=== PATIENT | female | born 1945 | race Caucasian/White ===

== ENCOUNTER 2023-10-03 03:54 | Inpatient (IN) ==
[2023-10-03] MEDS: ONDANSETRON INJ 2 MG/ML 2 ML VIAL IV STA (04:26)
[2023-10-03] MEDS: HYDROmorphone INJ 0.5 MG/0.5 ML SYR IV STA (04:26)
[2023-10-03] MEDS: SODIUM CHLORIDE 0.9% 1,000 ML IV STA (04:26)
[2023-10-03 04:46] LABS: Basophils # (auto) 0.04 K/uL (0.00-0.20); Basophils % (auto) 0.3 %; Eosinophils # (auto) 0.03 K/uL (0.00-0.50); Eosinophils % (auto) 0.2 %; Hematocrit (blood only) 40.4 % (37.0-47.0); Hemoglobin 13.7 g/dl (12.0-16.0); Immature Granulocytes # (auto) 0.05 K/uL (0.01-0.20); Immature Granulocytes % (auto) 0.4 %; Lymphocytes % (auto) 13.6 %; Mean Corpuscular Hemoglobin 30.6 pg (25.0-34.0); Mean Corpuscular Hgb Conc 33.9 g/dL (32.0-36.0); Mean Corpuscular Volume 90.2 fL (80.0-100.0); Mean Platelet Volume 10.2 fL (9.4-12.4); Monocytes # (auto) 0.76 K/uL (0.11-0.59); Monocytes % (auto) 5.4 %; Neutrophils # (auto) 11.18 K/uL (1.40-6.50); Neutrophils % (auto) 80.1 %; Platelet Count 169 K/uL (130-400); RDW Coefficient of Variation 13.3 % (11.5-14.5); RDW Standard Deviation 44.1 fL (36.4-46.3); Red Blood Count 4.48 M/uL (4.20-5.40); White Blood Count 13.96 K/ul (4.8-10.8)
--- NOTE | 2023-10-03 04:49 | Emergency Department Note ---
Impression & Plan Abdominal pain, SBO (small bowel obstruction), Vomiting The case was signed out to Dr. Avendaño at change of shift. ED Provider Note NAME: RASHAAD LOERA AGE: 78 SEX: Female INFORMANT: Patient ED PROVIDER(S): Gloria Oshea DO CHIEF COMPLAINT: abdominal pain and vomiting PLAN: Disposition: The case was signed out to the oncoming physician MEDICAL DECISION MAKING: this is a 78-year-old female patient presents emergency department with abdominal pain and vomiting. Patient developed some gas and epigastric abdominal pain or 11 AM yesterday morning. She took Tums and Got no relief. patient began to vomit. She became more concerned this evening because her vomit turned to bile only. Laboratory studies reveal white blood cell count of 13.9. H&H were normal. BUN was elevated at 25 with a normal creatinine at 0.7. Glucose was 155. The patient was bolused with IV normal saline solution. She was given a dose of IV Dilaudid and IV Zofran. This gave her significant relief of her symptoms. The patient went for CT scan of the abdomen/pelvis to rule out a small bowel obstruction. There was some delay in reading the CT scan through stat rad. It was finally read and interpreted as a small bowel obstruction. The case was signed out to Dr. Avendaño at change of shift and she will contact the on-call [facility] Hospitalist for admission. Triage Nursing notes: reviewed and agree With them. Vital Signs: reviewed and remarkable for hypertension Differential Diagnosis: pancreatitis, small bowel obstruction, colitis, gastritis Diagnostics, independently interpreted by me: Cardiac Monitoring: normal sinus rhythm at 70 Imaging studies: obstruction series: As per my independent interpretation- moderate dilation to small bowel with significant amount of stool noted. No significant air-fluid levels. CT scan of the abdomen/pelvis: Report/radiology reading pending-finally interpreted as small bowel obstruction HPI: 78 year old Female arrives for evaluation of epigastric abdominal pain and vomiting. patient developed some gas and epigastric abdominal pain yesterday morning around 11 AM. She took Tums and got no relief of her discomfort. She then began to vomit. PAST MEDICAL HISTORY: Mir, see below PAST SURGICAL HISTORY: See Below, SOCIAL HISTORY: See Below, HOME MEDICATIONS: see list ALLERGIES: penicillin VITALS: See Below PHYSICAL EXAMINATION: HEENT: Head - normocephalic and atraumatic. Pupils are equal, round, and reactive to light. Extraocular eye muscles are intact, and sclera are anicteric. Nose - moist nasal mucosa without discharge. Mouth - moist buccal mucosa. Oropharynx is nonerythematous and there is no tonsillar exudate or edema noted. Neck: Supple; no JVD, nuchal rigidity, cervical lymphadenopathy. Heart: Regular rate and rhythm. There is a normal S1 and S2 with no murmurs, clicks, or gallops appreciated. Lungs: Clear to auscultation bilaterally with no wheezes, rales, or rhonchi. Abdomen: Soft, moderately tender to palpation in the epigastrium, nondistended, with absent bowel sounds. There are no palpable pulsatile masses or hepatosplenomegaly. There is no guarding, rigidity, or rebound noted. Extremities: No evidence of cyanosis, clubbing, or edema. There are easily palpable peripheral pulses. Skin: warm and dry with good turgor and no rashes. Emergency department course: The patient was evaluated in room C-11. A complete history and physical was performed. An order was placed for continuous cardiac monitoring. The patient was in a normal sinus rhythm at a rate of 70. An IV lock was initiated and labs were drawn as above. Patient was given a dose of IV Zofran and IV Dilaudid. An obstruction series was performed. This did not reveal convincing evidence of a bowel obstruction but the patient's history was concerning for such. She went for CT scan of the abdomen/pelvis to rule out a bowel obstruction. Upon returning from radiology, the patient was more comfortable. She was no longer vomiting at this time. She was kept NPO. I reviewed the results of the CT scan. The case was signed out to Dr. Avendaño who will have the patient admitted to the hospital. 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 Surgical History H/O bladder repair surgery Hx of urinary sling procedure per patient. H/O tubal ligation Family History Mother Stroke Father FH: CABG (coronary artery bypass surgery) Chronic heart failure Sister Heart disease Coronary heart disease Social History Smoking Status: Former smoker Second Hand Exposure: No; Do You Dip or Chew Tobacco: No; Tobacco Cessation Education Requested by Patient: No Hx Alcohol Use: No Hx Substance Use: No Preferred Language: Estonian Communication Ability: Effective Machine Engineer Required: No Beliefs That Will Affect Care: None marital status: Current Living Situation: Spouse current occupational status: retired Other Information That Helps Us Care for You: No Feels Safe at Home: Yes Allergies Allergies Allergy/AdvReac Type Severity Reaction Status Date / Time Influenza Virus Vaccines Allergy Severe Guillain-Toughkenamon Verified 10/03/23 09:23 Syndrome oxybutynin Allergy Intermediate Fatigued Unverified 10/03/23 10:01 Penicillins AdvReac Unknown Rash Verified 10/03/23 09:23 Home Meds Home Medications Medication Instructions Recorded Confirmed amlodipine 5 mg tablet 5 mg PO DAILY 08/14/21 10/03/23 atorvastatin 10 mg tablet 10 mg PO DAILY 08/14/21 10/03/23 cholecalciferol (vitamin D3) 25 25 mcg PO DAILY 08/14/21 10/03/23 mcg (1,000 unit) capsule hydrochlorothiazide 12.5 mg capsule 12.5 mg PO DAILY 08/14/21 10/03/23 valsartan 320 mg tablet 320 mg PO DAILY 08/14/21 10/03/23 Results & Data (ED) Vital Signs Vital Signs - 24 hr 10/03/23 03:58 10/03/23 04:31 10/03/23 04:32 Temperature 37 C Temperature Source Temporal Artery Scan Pulse Rate 74 70 Pulse Rate [Apical] 69 Pulse Rate from SpO2 Sensor Pulse Rhythm Regular Pulse Strength Normal Respiratory Rate 20 16 16 Respiratory Effort / Characteristics Non-Labored Spontaneous Respiratory Depth Normal Respiratory Pattern Regular Blood Pressure 159/80 H Blood Pressure [Right Arm] 164/80 H Blood Pressure Mean 106 Blood Pressure Mean [Right Arm] 108 Blood Pressure Position Sitting Pulse Oximetry 98 97 97 Oxygen Delivery Method Room Air Room Air Room Air Sepsis Recent Fever Within 48 Hours No Sepsis New/Unexplained Change in Mental Status N/A Sepsis Action Taken by Nursing No Action Required 10/03/23 04:57 10/03/23 05:12 10/03/23 05:30 Temperature Temperature Source Pulse Rate 67 70 Pulse Rate [Apical] Pulse Rate from SpO2 Sensor 70 Pulse Rhythm Pulse Strength Respiratory Rate 11 L Respiratory Effort / Characteristics Respiratory Depth Respiratory Pattern Blood Pressure 179/87 H Blood Pressure [Right Arm] Blood Pressure Mean 110 Blood Pressure Mean [Right Arm] Blood Pressure Position Pulse Oximetry 94 Oxygen Delivery Method Sepsis Recent Fever Within 48 Hours Sepsis New/Unexplained Change in Mental Status Sepsis Action Taken by Nursing 10/03/23 05:30 10/03/23 05:30 10/03/23 05:36 Temperature Temperature Source Pulse Rate 65 Pulse Rate [Apical] Pulse Rate from SpO2 Sensor 66 Pulse Rhythm Pulse Strength Respiratory Rate 17 Respiratory Effort / Characteristics Respiratory Depth Respiratory Pattern Blood Pressure 179/87 H 179/87 H Blood Pressure [Right Arm] Blood Pressure Mean 110 110 Blood Pressure Mean [Right Arm] Blood Pressure Position Pulse Oximetry 95 Oxygen Delivery Method Sepsis Recent Fever Within 48 Hours Sepsis New/Unexplained Change in Mental Status Sepsis Action Taken by Nursing 10/03/23 05:45 10/03/23 06:00 10/03/23 06:00 Temperature Temperature Source Pulse Rate 66 Pulse Rate [Apical] 64 Pulse Rate from SpO2 Sensor 66 Pulse Rhythm Pulse Strength Respiratory Rate 11 L 16 Respiratory Effort / Characteristics Respiratory Depth Respiratory Pattern Blood Pressure 191/85 H Blood Pressure [Right Arm] 189/81 H Blood Pressure Mean 128 Blood Pressure Mean [Right Arm] 117 Blood Pressure Position Pulse Oximetry 97 97 Oxygen Delivery Method Room Air Sepsis Recent Fever Within 48 Hours Sepsis New/Unexplained Change in Mental Status Sepsis Action Taken by Nursing 10/03/23 06:03 10/03/23 06:27 10/03/23 06:30 Temperature Temperature Source Pulse Rate 65 61 Pulse Rate [Apical] Pulse Rate from SpO2 Sensor 66 62 Pulse Rhythm Pulse Strength Respiratory Rate 17 14 Respiratory Effort / Characteristics Respiratory Depth Respiratory Pattern Blood Pressure 189/81 H Blood Pressure [Right Arm] Blood Pressure Mean 127 Blood Pressure Mean [Right Arm] Blood Pressure Position Pulse Oximetry 95 98 Oxygen Delivery Method Sepsis Recent Fever Within 48 Hours Sepsis New/Unexplained Change in Mental Status Sepsis Action Taken by Nursing 10/03/23 06:33 10/03/23 06:42 10/03/23 07:57 Temperature Temperature Source Pulse Rate 63 64 Pulse Rate [Apical] Pulse Rate from SpO2 Sensor 63 64 Pulse Rhythm Pulse Strength Respiratory Rate 20 17 Respiratory Effort / Characteristics Respiratory Depth Respiratory Pattern Blood Pressure 155/78 H Blood Pressure [Right Arm] Blood Pressure Mean 91 Blood Pressure Mean [Right Arm] Blood Pressure Position Pulse Oximetry 96 95 Oxygen Delivery Method Sepsis Recent Fever Within 48 Hours Sepsis New/Unexplained Change in Mental Status Sepsis Action Taken by Nursing 10/03/23 08:03 Temperature Temperature Source Pulse Rate 70 Pulse Rate [Apical] Pulse Rate from SpO2 Sensor 71 Pulse Rhythm Pulse Strength Respiratory Rate 16 Respiratory Effort / Characteristics Respiratory Depth Respiratory Pattern Blood Pressure Blood Pressure [Right Arm] Blood Pressure Mean Blood Pressure Mean [Right Arm] Blood Pressure Position Pulse Oximetry 98 Oxygen Delivery Method Sepsis Recent Fever Within 48 Hours Sepsis New/Unexplained Change in Mental Status Sepsis Action Taken by Nursing Laboratory Data 10/03/23 04:18 10/03/23 04:18 Lab Results 10/03/23 10/03/23 Range/Units 04:18 08:00 WBC 13.96 H (4.8-10.8) K/ul RBC 4.48 (4.20-5.40) M/uL Hgb 13.7 (12.0-16.0) g/dl Hct 40.4 (37.0-47.0) % MCV 90.2 (80.0-100.0) fL MCH 30.6 (25.0-34.0) pg MCHC 33.9 (32.0-36.0) g/dL RDW Std Deviation 44.1 (36.4-46.3) fL RDW Coeff of Marciano 13.3 (11.5-14.5) % Plt Count 169 (130-400) K/uL MPV 10.2 (9.4-12.4) fL Immature Gran % (Auto) 0.4 % Neut % (Auto) 80.1 % Lymph % (Auto) 13.6 % [place] % (Auto) 5.4 % Eos % (Auto) 0.2 % Baso % (Auto) 0.3 % Neut # (Auto) 11.18 H (1.40-6.50) K/uL Lymph # (Auto) 1.90 (1.20-3.40) K/uL [place] # (Auto) 0.76 H (0.11-0.59) K/uL Eos # (Auto) 0.03 (0.00-0.50) K/uL Baso # (Auto) 0.04 (0.00-0.20) K/uL Immature Gran # (Auto) 0.05 (0.01-0.20) K/uL Sodium 137 (136-145) mmol/L Potassium 3.9 (3.5-5.1) mmol/L Chloride 103 (98-107) mmol/L Carbon Dioxide 23 (21-32) mmol/L Anion Gap 11 (3-11) BUN 25 H (6-23) mg/dl Creatinine 0.79 (0.6-1.2) mg/dl Est Cr Clr Drug Dosing 76.1 ml/min Est GFR ( Amer) 84.3 ml/min Est GFR (Non-Af Amer) 72.7 ml/min BUN/Creatinine Ratio 31.6 H (10-20) Glucose 155 H (70-99(Fasting)) mg/dl Estimat Average Glucose 134 mg/dl Hemoglobin A1c 6.3 H (4.5-5.6) % Calcium 10.2 (8.6-10.3) mg/dl Total Bilirubin 0.7 (0.2-1.0) mg/dl AST 17 (13-39) U/L ALT 15 (7-52) U/L Alkaline Phosphatase 87 (34-104) U/L Total Protein 8.0 (6.0-8.3) gm/dl Albumin 4.4 (3.4-5.0) gm/dl Globulin 3.6 (2.5-4.0) gm/dl Albumin/Globulin Ratio 1.2 (0.9-2) Lipase 13 (11-82) U/L Urine Color Yellow Urine Appearance Clear (Clear) Urine pH 5.5 (4.5-7.5) Ur Specific [place] > 1.045 H (1.000-1.030) Urine Protein Negative (Negative) Urine Glucose (UA) Negative (Negative) Urine Ketones Negative (Negative) Urine Blood Trace H (Negative) Urine Nitrite Positive A (Negative) Urine Bilirubin Negative (Negative) Urine Urobilinogen Negative (Negative) Ur Leukocyte Esterase Negative (Negative) Urine WBC (Auto) 0-5 (0-5) /hpf Urine RBC (Auto) 0-2 (0-2) /hpf U Hyaline Cast (Auto) 0-2 (0-2) /lpf U Epithel Cells (Auto) 0-2 (0-2) /hpf Urine Bacteria (Auto) 4+ H (None Seen) Administered Medications Lactated Ringer's (Lr) 1,000 mls @ 80 mls/hr IV .[id number] Stop: 11/02/23 09:58 Last Admin: 10/03/23 12:05 Dose: 80 mls/hr Documented By: RICKY Cefepime HCl 1,000 mg/ Syringe 10 mls @ 5 mls/min IV Q12H [facility]; Protocol Stop: 10/08/23 10:44 Last Admin: 10/03/23 12:24 Dose: 5 mls/min Documented By: RICKY Discontinued Medications Hydromorphone HCl (Hydromorphone Inj 0.5 Mg/0.5 Ml Syr) 0.5 mg IV NOW STA Stop: 10/03/23 04:20 Last Admin: 10/03/23 04:26 Dose: 0.5 mg Documented By: SYED Sodium Chloride (Nss) 1,000 mls @ 999 mls/hr IV .Q1H1M STA Stop: 10/03/23 05:19 Last Infusion: 10/03/23 05:56 Dose: Infused Documented By: Admin: 10/03/23 04:26 Dose: 999 mls/hr Documented By: SYED Ioversol (Optiray 320 100ml) 100 ml IV ONCE ONE Stop: 10/03/23 05:24 Last Admin: 10/03/23 05:24 Dose: 92 ml Documented By: AMALIA Ondansetron HCl (Ondansetron Inj 2 Mg/Ml 2 Ml Vial) 4 mg IV NOW STA Stop: 10/03/23 04:20 Last Admin: 10/03/23 04:26 Dose: 4 mg Documented By: SYED Imaging Data Radiologist's Impression: Chest/Abdomen X-ray 10/03/23 04:20 PA CHEST RADIOGRAPH AND UPRIGHT AND SUPINE AP RADIOGRAPHS OF THE ABDOMEN CLINICAL HISTORY: Epigastric pain. COMPARISON STUDY: CT of the abdomen and pelvis November 01, 2020. FINDINGS: Lungs are clear. There is no pneumothorax or pleural effusion. Pulmonary vascularity is normal. Cardiomediastinal silhouette is normal. There is no evidence for free air. A loop of mildly dilated small bowel measures 3.6 cm in caliber. IMPRESSION: 1. No free air. A single loop of mildly dilated small bowel. A partial small bowel obstruction cannot be excluded. 2. No acute cardiopulmonary findings. ACT 112: Negative or not required by law. Electronically signed by: Jose Martin Pearl M.D. 10/03/2023 7:09 AM Abdomen/Pelvis CT 10/03/23 05:07 CT SCAN OF THE ABDOMEN AND PELVIS WITH IV CONTRAST CLINICAL HISTORY: Generalized abdominal pain. COMPARISON STUDY: Abdominal CT dated 11/01/2020. TECHNIQUE: Following the IV administration of 92 cc of Optiray 320, CT scan of the abdomen and pelvis is performed from the lung bases to the proximal femora. Images are reviewed in the axial, sagittal, and coronal planes. IV contrast was administered without complication. A dose lowering technique was utilized adhering to the principles of ALARA. CT DOSE: 1366.67 mGy.cm FINDINGS: Lung bases: The heart is normal in size and without pericardial effusion. There are coronary artery calcifications. The lung bases are clear noting dependent atelectasis. There is a small hiatal hernia. Liver: The contrast-enhanced liver is normal in size, contour, and attenuation. There is no intrahepatic biliary ductal dilatation. The hepatic veins and portal veins are patent. Gallbladder: Unremarkable. Spleen: Normal in size and attenuation. Pancreas: Unremarkable. Adrenal glands: An 11 mm right adrenal adenoma is unchanged. The left adrenal gland is normal in appearance. Kidneys: The contrast enhanced kidneys are normal in size and without hydronephrosis. The kidneys enhance symmetrically. Scattered subcentimeter cortical hypodensities likely represent cysts but are too small for definitive characterization. Abdominal vasculature: The abdominal aorta is normal in course and caliber. Bowel: There are distended and fluid-filled loops of small bowel in the pelvis which measure up to 3.5 cm in diameter. A transition point is suggested in the lower mid abdomen on image #171. This is consistent with a small bowel obstruction. No focally thick-walled loops identified and there is no pneumatosis intestinalis or portal venous gas. There is also infiltration identified around loops of relatively decompressed proximal small bowel in the left upper quadrant. There is mild colonic diverticulosis without CT evidence of acute diverticulitis. The appendix is well-visualized and normal. Peritoneum: There is no intraperitoneal free air or abdominal ascites. Lymphadenopathy: None. Pelvic viscera: The bladder wall appears thickened. A 14 mm diverticulum is seen at the bladder dome. The uterus and adnexa are normal as visualized. There are bilateral fat-containing groin hernias. There is trace free fluid in the pelvis. Skeletal structures: The skeletal structures are osteopenic. There is mild lumbosacral spondylosis. No lytic or blastic lesions are seen. IMPRESSION: 1. Findings are consistent with a small bowel obstruction. A transition point is suggested in the lower midabdomen, and this is likely on the basis of adhesions. 2. There is also mild infiltration around loops of small bowel in the left upper quadrant. Correlate clinically. 3. There is trace free fluid in the pelvis. 4. No intraperitoneal free air is identified. No focally thick-walled bowel loops are identified and there is no pneumatosis intestinalis or portal venous gas. 5. Colonic diverticulosis without CT evidence of acute diverticulitis. 6. Additional findings as above. ACT 112: Negative or not required by law. Electronically signed by: Moy Bryant M.D. 10/03/2023 7:47 AM Discharge Plan Visit Data Chief Complaint: Vomiting Stated Complaint: throwing up, pain the stomach area ED Provider: Sara Avendaño Discharge Problem: Abdominal pain, SBO (small bowel obstruction), Vomiting Patient Disposition: Admitted As Inpatient Discharge Instructions Interventions: ED Discharge Assessment Last Done: 10/03/23 09:02 Discharge Problem: Abdominal pain Qualifiers: Abdominal location: unspecified location Qualified Code(s): R10.9 - Unspecified abdominal pain
[2023-10-03 05:04] LABS: Albumin Globulin Ratio 1.2 (0.9-2); Albumin Level 4.4 gm/dl (3.4-5.0); BUN Creatinine Ratio 31.6 (10-20); Bilirubin,Total 0.7 mg/dl (0.2-1.0); Calcium 10.2 mg/dl (8.6-10.3); Creatinine Clr Calc Pharmacy 76.1 ml/min; Est GFR (African American) 84.3 ml/min; Est GFR (Non-African American) 72.7 ml/min; Globulin 3.6 gm/dl (2.5-4.0); Potassium 3.9 mmol/L (3.5-5.1)
[2023-10-03] MEDS: OPTIRAY 320 100ml IV ONE (05:24)
--- NOTE | 2023-10-03 07:10 | XRay Report ---
PA CHEST RADIOGRAPH AND UPRIGHT AND SUPINE AP RADIOGRAPHS OF THE ABDOMEN CLINICAL HISTORY: Epigastric pain. COMPARISON STUDY: CT of the abdomen and pelvis November 01, 2020. FINDINGS: Lungs are clear. There is no pneumothorax or pleural effusion. Pulmonary vascularity is no rmal. Cardiomediastinal silhouette is normal. There is no evidence for free air. A loop of mildly dil ated small bowel measures 3.6 cm in caliber. IMPRESSION: 1. No free air. A single loop of mildly dilated small bowel. A partial small bowel obstruction cannot be excluded. 2. No acute cardiopulmonary findings. ACT 112: Negative or not required by law. Electronically signed by: Jose Martin Pearl M.D. 10/03/2023 7:09 AM
--- OUTSIDE RECORDS SUMMARY | 2023-10-03 07:14 | External Medical Summary | Summary of Care ---
Author Name Unknown Organization [facility] Address [address] [place] [address] Phone [phone] Care Team Providers Care Antique Furniture Restorer Name Role Phone Maria Luisa Nunez MD Primary Care Provider [phone] Reason for Visit * Reason Onset Date Comments Mycode - Thinking About It But No Form Provided 07/02/2023 Encounter Details Date Type Department Care Team (Late st Contact Info) Description 07/02/2023 Orders Only Outcomes Research Department [address] [place] [address] Mindi Munoz CHRA MyCode Nonconsent Documentation Allergies Active Allergy Reactions Criticality Noted Date Comments Influenza Vaccines Neuro complications (Please comment) 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 0 12/29/2017 Active Vitamin B-12 5000 MCG Oral Tablet Disintegrating Take by mouth. 0 12/08/2020 Active Polyethylene Glycol 3350 17 GM/SCOOP Oral PowderIndications:Oth er constipation Take 17 g by mouth as needed for Constipation. Dissolve one heaping tablespoon in 8 ounces of water or juice. 0 12/14/2021 Active Zoster Vac Recomb Adjuvanted 50 MCG/0.5ML Intramuscular Suspension Reconstituted (Shingrix)Indications :Need for shingles vaccine Inject 0.5 mL into a large muscle now and repeat dose in 60 to 180 days 1 Each 1 07/01/2022 Active Atorvastatin Calcium 10 MG Oral Tablet (Lipitor)Indications: Hyperlipidemia with target LDL less than 100 TAKE 1 TABLET BY MOUTH EVERY DAY 90 Tablet 3 07/16/2022 Active hydroCHLOROthiazide 12.5 MG Oral Tablet (Hydrodiuril)Indicati ons:HTN, goal below 140/90,Stress bladder incontinence, female Take 1 Tablet by mouth in the morning. 90 Tablet 3 09/16/2022 Active Valsartan 320 MG Oral Tablet (Diovan) TAKE 1 TABLET BY MOUTH EVERY DAY 90 Tablet 3 10/14/2022 Active amLODIPine Besylate 5 MG Oral Tablet (Norvasc) TAKE 1 TABLET BY MOUTH EVERY DAY 90 Tablet 3 12/11/2022 Active Albuterol Sulfate HFA 108 (90 Base) MCG/ACT Inhalation Aerosol SolutionIndications:A cute bronchitis, antibiotics not indicated Inhale 2 Puffs by mouth every 6 hours as needed for Cough. 8.5 g 3 02/03/2023 Active Docusate Sodium 100 MG Oral Capsule (Colace)Indications:O ther constipation Take 1 Capsule by mouth in the morning. Add 2nd one if needed. 0 07/02/2023 Active Famotidine 20 MG Oral Tablet (Pepcid)Indications:H iatal hernia with GERD Take 1 Tablet by mouth in the morning. 90 Tablet 3 07/02/2023 Active documented as of this encounter (statuses as of 07/02/2023) Active Problems Problem Noted Date Diagnosed Date History of nonmelanoma skin cancer 07/09/2022 Overview: Hx of SCC R forearm 2021, SCC L inman 2019, SCCis R lateral lower leg 2018, SCC L dorsal hand x 2(no records) Allergy to influenza vaccine 12/14/2021 Advanced directives, counseling/discussion 09/30 Urge incontinence of urine 10/01/2019 Urinary incontinence without sensory awareness 0 10/01/2019 Prediabetes 09/14/2018 Overview: Per Prediabetes protocol Hyperlipidemia with target LDL less than 100 Primary osteoarthritis of both knees 12/29/2017 HTN, goal below 140/90 History of Guillain-[place] syndrome documented as of this encounter (statuses as of 07/02/2023) Resolved Problems Problem Noted Date Diagnosed Date Resolved Date Influenza vaccination contraindicated 09/01/2018 06/07/2021 documented as of this encounter (statuses as of 07/02/2023) Immunizations Name Administration Dates Next Due COVID-19 mRNA, LNP-s, No Pre serve, 2-Dose Series (Moderna) 06/07/2020,05/12/2020 COVID-19, mRNA, LNP-s, PF, B ooster, 100mcg/0.5mg (Moderna) 02/03/2021 Covid-19, Mrna, Lnp-s, Pf, B ivalent, 30 Mcg, IM, 12 yrs and above (Pfizer) 01/01/2022 Pneumococcal Conjugate Vacc, 13 Valent (Prevnar) 12/08/2020 Pneumococcal Polysaccharide PPV23 (Pneumovax) TDAP (age 10 and older)(Boostrix) 12/09/2019 documented as of this encounter Social History Tobacco Use Types Packs/Day Years Used Date Smoking Tobacco: Former Cigarettes 0.5 19 1 960 - 1978 Smokeless Tobacco: Never Alcohol Use Standard Drinks/Week Comments Yes 0 (1 standard drink = 0.6 oz pur e alcohol) one glass of wine a week PHQ-2 Answer Date Recorded PHQ Adult Total Score 0 07/01/2022 Hunger Vital Sign Answer Date Recorded Within the past 12 months, y ou worried that your food would run out before you got the money to buy more. Never true 07/02/19 23 Within the past 12 months, t he food you bought just didn't last and you didn't have money to get more. Never true 07/01/2022 Sex and Gender Information Value Date Recorded Sex Assigned at Female 09/01/2018 8:49 AM EDT Gender Identity Female 09/01/2018 8:49 AM EDT Sexual Orientation Straight 09/01/2018 8: 49 AM EDT Job Start Date Occupation Industry Not on file Not on file Not on file documented as of this encounter Progress Notes * Mindi Munoz CHRA - 07/02/2023 8:56 AM EDT [place] Nonconsent Documentation Maurizio Loyd Betancourt was approached in the clinic regarding participation in the [employer] and did not consent. documented in this encounter Plan of Treatment Upcoming Encounters Date Type Department Care Team (Late st Contact Info) Description 07/09/2023 9:40 AM EDT Office Visit Dermatology [facility] [address] [facility] [place] [id number] Nadya Ramos PA-C [address] [facility] [place] [phone] 01/07/2024 8:20 AM EDT Office Visit General Internal Medicine [facility] [address] [place] [id number] Maria Luisa Nunez MD [address] [facility] [place] [id number] Scheduled Procedures Name Priority Associated Diagnoses Date/Ti me COLONOSCOPY FLEXIBLE PROXIMA L DIAGNOSTIC Recall Screening for malignant neoplasm of colon Health Maintenance Due Date Last Done Comments Zoster Vaccines (1 of 2) 1997 COVID-19 Vaccine (2022- season) 2022 01/01/2022, 02/03/2021, 06/07/2020, Additional history exists Influenza Vaccine (FLU shot) (#1) 2022 COLONOSCOPY-EVERY 5 YRS AGES 18-100 04/20/2023 04/20/2018, 04/20/2018 Depression Screening 07/02/2023 07/01/2022 DXA Scan 2024 02/24/2017 GFR 06/15/2024 06/16/2023, 12/06, 06/19/2022, Additional history exists HbA1c 06/15/2024 06/16/2023, 12/06, 06/19/2022, Additional history exists Albumin/Creatinine Ratio 06/19/2025 06/19/2022 DTaP,Tdap,and Td Vaccines (2 - Td or Tdap) 12/08/2029 12/09/2019 Pneumococcal Vaccine: 65+ Years Completed 12/14/2021, 12/08/2020 GARDASIL-HPV IMMUNIZATION SERIES Aged Out No longer eligible based on patient's age to complete this topic Hepatitis B Aged Out No longer eligi ble based on patient's age to complete this topic MENINGOCOCCAL (MENACTRA/MENVEO) Aged Out No longer eligible based on patient's age to complete this topic documented as of this encounter Medical Devices Implanted Type Area Locomotive Firer Device Identifier Shelf Expiration Date Model / Serial / Lot Lens Intraoc 18.0 - [id number] - [id number] Implanted:Qty: 1 on 10/23/2021 by Eddie Perla MD at OR [facility] Left: Eye [employer] 06/04/2026 [id number] / [id number] / [id number] Lens Intraoc 16.5 - [id number] - [id number] Implanted:Qty: 1 on 11/13/2021 by Eddie Perla MD at OR [facility] Right: Eye [employer] 05/07/2026 [id number] / [id number] / [id number] documented as of this encounter Advance Directives Latest Code Status on File Code Status Date Activated Date Inactivated Comments No Code 11/13/2021 6:57 AM 11/13/2021 1:12 PM This or kavya reflects the patients wishes and were consensually agreed upon. Question Answer Comments Discussion of Advance Directives occurred with: Patient Does the patient have a Living Will? No Does the patient have Health Care Power of Solar Development Engineer? No Care Teams Antique Furniture Restorer Relationship Specialty Start Date End Date Maria Luisa Nunez MD [address] [facility] [place] [address] PCP - General Internal Medicine 12/29/17 documented as of this encounter
--- OUTSIDE RECORDS SUMMARY | 2023-10-03 07:14 | External Medical Summary ---
Author Name Unknown Address Unknown Organization [id number]:[facility] [place] [address] [facility] [place] [address] Laboratory Report Ordering Provider Test Date Status JOSE ALEJANDRO CHANEYALI 06/16/2023 07:48:47 Final Observation Date Value Abnormality Reference (Units ) Status Triglyceride 06/16/2023 07:48:47 76 <=174 ( mg/dL) Final Triglyceride Reference Range s (mg/dL):
<150 Acceptable
150-174 Borderline high
175-499 High
>=500 Very high Cholesterol 06/16/2023 07:48:47 144 <200 (mg /dL) Final Total Cholesterol Reference Ranges (mg/dL):
<200 Desirable
200-239 Borderline high
>=240 High HDL 06/16/2023 07:48:47 59 >49 (mg/dL ) Final HDL Cholesterol Reference Ra nges (mg/dL):
>=60 High (Desirable)
<50 Low (Undesirable) For Females
<40 Low (Undesirable) For Males NON-HDL CHOLESTEROL 06/16/2023 07:48:47 85 <=159 (mg/dL) Final Non-HDL Cholesterol Referenc e Range (mg/dL):
<100 Target level for high risk ASCVD patient
<130 Optimal for general population
130-159 Near optimal for general population
160-189 Borderline High
190-219 High
>=220 Very High LDL, (calculated) 06/16/2023 07:48:47 70 <= 129 (mg/dL) Final LDL Cholesterol Reference Ra nges (mg/dL):
<70 Target level for high risk ASCVD patient
<100 Optimal for general population
100-129 Near optimal for general population
130-159 Borderline high
160-189 High
>=190 Very high Performing Location [facility] [place] [address] [place] [address]
--- OUTSIDE RECORDS SUMMARY | 2023-10-03 07:14 | External Medical Summary | Summary of Care ---
Author Name Unknown Organization [facility] Address [address] [facility] [place] [address] Phone [phone] Care Team Providers Care Rehabilitation Teacher Name Role Phone Maria Luisa Nunez MD Primary Care Provider [phone] Reason for Visit * Reason Comments Follow Up 6mo return Abdominal Pressure C/o mid abdominal pr essure that sometimes radiates down into her pubic area. She does have hiatal hernia and is concerned for that and started taking metamucil again recently and has since stopped in fear that may have caused issues. Having regular BM. Encounter Details Date Type Department Care Team (Latest Contact Info) Description 07/02/2023 8:20 AM EDT Office Visit General Internal Medicine [facility] [place] [address] [facility] [place] [address] Maria Luisa Nunez MD 200 [facility] [place] [address] Generalized abdominal pain*; Other constipation; Prediabetes; Hyperlipidemia with target LDL less than 100; HTN, goal below 140/90; History of nonmelanoma skin cancer; History of Guillain-Hamilton syndrome; Allergy to influenza vaccine; Primary osteoarthritis of both knees; Urge incontinence of urine; Special screening for malignant neoplasms, colon; Urinary incontinence without sensory awareness; Vitamin D deficiency; Hiatal hernia with GERD Allergies Active Allergy Reactions Criticality Noted Date Comments Influenza Vaccines Neuro complications (Please comment) 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 0 8 Active Vitamin B-12 5000 MCG Oral Tablet Disintegrating Take by mouth. 0 1 Active Polyethylene Glycol 3350 17 GM/SCOOP Oral PowderIndications: Other constipation Take 17 g by mouth as needed for Constipation. Dissolve one heaping tablespoon in 8 ounces of water or juice. 0 2 Active Zoster Vac Recomb Adjuvanted 50 MCG/0.5ML Intramuscular Suspension Reconstituted (Shingrix)Indicati ons:Need for shingles vaccine Inject 0.5 mL into a large muscle now and repeat dose in 60 to 180 days 1 Each 1 3 Active Atorvastatin Calcium 10 MG Oral Tablet (Lipitor)Indicatio ns:Hyperlipidemia with target LDL less than 100 TAKE 1 TABLET BY MOUTH EVERY DAY 90 Tablet 3 3 Active hydroCHLOROthiazid e 12.5 MG Oral Tablet (Hydrodiuril)Indic ations:HTN, goal below 140/90,Stress bladder incontinence, female Take 1 Tablet by mouth in the morning. 90 Tablet 3 3 Active Valsartan 320 MG Oral Tablet (Diovan) TAKE 1 TABLET BY MOUTH EVERY DAY 90 Tablet 3 3 Active amLODIPine Besylate 5 MG Oral Tablet (Norvasc) TAKE 1 TABLET BY MOUTH EVERY DAY 90 Tablet 3 3 Active Albuterol Sulfate HFA 108 (90 Base) MCG/ACT Inhalation Aerosol SolutionIndication s:Acute bronchitis, antibiotics not indicated Inhale 2 Puffs by mouth every 6 hours as needed for Cough. 8.5 g 3 3 Active Docusate Sodium 100 MG Oral Capsule (Colace)Indication s:Other constipation Take 1 Capsule by mouth in the morning. Add 2nd one if needed. 0 4 Active Famotidine 20 MG Oral Tablet (Pepcid)Indication s:Hiatal hernia with GERD Take 1 Tablet by mouth in the morning. 90 Tablet 3 4 Active Benefiber Oral Powder Take 1 Tbsf in a glass of water daily 0 2 07/02/19 24 Discontinued Docusate Sodium 100 MG Oral Capsule (Colace)Indication s:Other constipation Take by mouth 1 Capsule 2 times a day as needed for Constipation. 60 Capsule 11 2 07/02/19 24 Discontinued Famotidine 20 MG Oral Tablet (Pepcid)Indication s:Hiatal hernia with GERD Take 1 Tablet by mouth in the morning. 90 Tablet 3 3 07/02/19 24 Discontinued(Re fill) Robitussin Cough+Chest Mike DM 10-200 MG Oral Capsule (Dextromethorphan- guaiFENesin)Indica tions:Acute bronchitis, antibiotics not indicated Take by mouth. 0 07/02/19 24 Discontinued(En d of Procedure) documented as of this encounter (statuses as [...] 12/29/2017 HTN, goal below 140/90 History of Guillain-Hamilton syndrome documented as of this encounter (statuses [...] Smoking Tobacco: Former Cigarettes 0.5 19 1 0 - 1978 Smokeless Tobacco: Never Alcohol Use [...] on file documented as of this encounter Last Filed Vital Signs Vital Sign Reading Time Taken Comments Blood Pressure 126/60 07/02/2023 8:16 AM EDT Pulse 60 07/02/2023 8:16 AM EDT Temperature 37.2 C (98.9 F) 07/02/2023 8:16 AM ED T Respiratory Rate - - Oxygen Saturation 98% 07/02/2023 8:16 AM EDT Inhaled Oxygen Concentration - - Weight 105.8 kg (233 lb 4.8 oz) 07/02/2023 8:16 AM EDT Height 174 cm (5' 8.5") 07/02/2023 8:16 AM EDT Body Mass Index 34.96 07/02/2023 8:16 AM EDT documented in this encounter Patient Instructions * Patient Instructions* Nevin Sarmiento LPN - 07/02/2023 8:15 AM EDT Images from the original note were not included. Colorectal Cancer Screening Colorectal cancer (cancer in the colon or rectum) is a leading cause of cancer deaths in the [place] But it doesnt have to be. When this cancer is found and removed early, the chances of a full recovery are very good. Because colorectal cancer rarely causes symptoms in its early stages, screening for the disease is important. Its even more crucial if you have risk factors for the disease. Learn more about colorectal cancer and its risk factors. Then talk to your healthcare provider about being screened. You could be saving your own life. Risk factors for colorectal cancer Your risk of having colorectal cancer increases if you: Are 50 years of age or older Have a family history or personal history of colorectal cancer or polyps Have a personal history of type 2 diabetes, Crohns disease, or ulcerative colitis Have an inherited genetic syndrome like [place] syndrome (also known as HNPCC) or familial adenomatous polyposis (FAP) Are very overweight Are not physically active Smoke Drink a lot of alcohol Eat a lot of red or processed meat The colon and rectum Waste from food you eat enters the colon from the small intestine. As it travels through the colon,the waste (stool) loses water and becomes more solid. Intestinal muscles push it toward the sigmoid--the last section of the colon. Stool then moves into the rectum, where its stored until its ready to leave the body during a bowel movement. How cancer develops Polyps are growths that form on the inner lining of the colon or rectum. Most are benign, which means they arent cancerous. But over time, some polyps can become cancer (malignant). This happens when cells in these polyps begin growing abnormally. In time, malignant cells invade more and more ofthe colon and rectum. The cancer may also spread to nearby organs or lymph nodes or to other parts of the body. Finding and removing polyps can help prevent cancer from ever forming. Your screening Screening means looking for a health problem before you have symptoms. During screening for colorectal cancer, your healthcare provider will ask about your health history, examine you, and do one or more tests. History and exam The history and exam involve the following: Health history. Your healthcare provider will ask about your health history. Mention if a family member has had colon cancer or polyps. Also mention any health problems you have had in the past. Digital rectal exam (ANGELIKA). During a ANGELIKA, the healthcare provider inserts a lubricated gloved fingerinto the rectum. The test is painless and takes less than a minute. Healthcare providers agree thatthis test alone is not enough to screen for colorectal cancer. Screening test choices: Fecal occult blood test (FOBT) or fecal immunochemical test (FIT) These tests check for occult blood in stool (blood you cant see). Hidden blood may be a sign of colon polyps or cancer. A small sample of stool is tested for blood in a laboratory. Most often, youcollect this sample at home using a kit your healthcare provider gives you. Follow the instructionscarefully for using this kit. You might need to avoid certain foods and medicines before the test, as directed. Barium enema with contrast (double-contrast barium enema) This test uses X-rays to provide images of the entire colon and rectum. The day before this test, you will need to do a bowel prep to clean out the colon and rectum. A bowel prep is a liquid diet plus strong laxatives or enemas. You will be awake for the test, but you may be given medicine to help you relax. At the start of the test, a radiologist (a healthcare provider who specializes in imagingtests) places a soft tube into the rectum. The tube is used to fill the colon with a contrast liquid (barium) and air. This can be uncomfortable for some people. The liquid helps the colon show up clearly on the X-rays. Because the test uses X-rays, it exposes you to a small amount of radiation. Virtual colonoscopy This exam is also called a CT colonography. It uses a series of X-ray photographs to create a 3-D view of the colon and rectum. The day before the test, you will need to do a bowel prep to clean out your colon. Your healthcare provider will give you instructions on how to do this. During the procedure, you will lie on a table that is part of a special X-ray machine called a CT scanner. A small tube will be placed into your rectum to fill the colon and rectum with air. This can be uncomfortable for some people. Then, the table will move into the machine and pictures will be taken of your colonand rectum. A computer will combine these photos to create a 3-D picture. Because the test uses X-rays, it exposes you to a small amount of radiation. Cologuard Cologuard is an easy to use, noninvasive colon cancer screening test that you can use in the privacy of your own home. It identifies altered DNA and/or blood in stool, which are associated with the possibility of colon cancer or precancer. DNA is continuously shed from cells in the intestinal lining, where it is passed into the stool. Ifcancer or precancer is present, abnormal cells will shed into the colon and stool along with normalcells. A molecular biology process is used to capture specific pieces of DNA for further analysis. Scope exams Here are two types of scope exams: Colonoscopy. This test can be used to find and remove polyps anywhere in the colon or rectum. The day before the test, you will do a bowel prep. This is a liquid diet plus a strong laxative solution or an enema. The bowel prep will cleanse your colon. You will be given instructions for this. Just before the test, you are given a medicine to make you sleepy. Then, a long, flexible, lighted tube called a colonoscope is gently inserted into the rectum and guided through the entire colon. Images ofthe colon are viewed on a video screen. Any polyps that are found are removed and sent to a lab fortesting. If a polyp cant be removed, a sample of tissue is taken and the polyp might be removed l ater during surgery. You will need to bring someone with you to drive you home after this test. Sigmoidoscopy. This test is similar to colonoscopy, but focuses only on the sigmoid colon and rectum. As with colonoscopy, bowel prep must be done the day before this test. It might not need to be ascomplete as the bowel prep for a colonoscopy. You are awake during the procedure, but you may be given medicine to help you relax. During the test, the healthcare provider guides a thin, flexible, lighted tube called a sigmoidoscope through your rectum and lower colon. The images are displayed on avideo screen. Polyps are removed, if possible, and sent to a lab for testing. Colonoscopy is the only screening test that lets your healthcare provider see the entire colon and rectum. This test also lets your healthcare provider remove any pieces of tissue that need to be looked at by a lab. If something suspicious is found using any other tests, you will likely need a colonoscopy. When to call your healthcare provider after a test Call your healthcare provider if you have any of the following after any screening test: Bleeding Fever of 100.4F (38C) or higher, or as directed by your healthcare provider Abdominal pain Vomiting Date Last Reviewed: 02/08/201519990719-6516 [employer]. [address] [place] [address]. All rights reserved. This information is not intended as a substitute for professional medical care. Always follow your healthcare professional's instructions. documented in this encounter Progress Notes * Maria Luisa Nunez MD - 07/02/2023 8:23 AM EDT Images from the original note were not included. History of Present Illness Maurizio Betancourt is a 78 year old female that presents for Follow Up (6mo return) and Abdominal Pressure (C/o mid abdominal pressure that sometimes radiates down into her pubic area. She does have hiatal hernia and is concerned for that and started taking metamucil again recently and has since stopped in fear that may have caused issues. Having regular BM.) 78 year old female with PMH significant for hypertension, his of GB induced by flu shot , SCC, kneeoa b/l presents here for recheck. Acute concern :- - mid abdominal pressure that sometimes radiates down into her pubic area - 2 weeks . Pain after meal And also before BM and sometimes feel better after BM but not always. She does have hiatal herniaand is concerned for that and started taking metamucil again recently and has since stopped in fearthat may have caused issues. Having regular BM now since stopped it. She had issue of constipation and off past including 2 years ago but doing okay overall and not taking any medication at this point. Some gas from above and belching burping. Was taking Pepcid as needed I am not daily -Also history of diverticulitis long time ago, follow up colonoscopy showed only diverticulosis butno polyps but she was scheduled for every 5 years check until now since her age of 52. No family history of colon cancer Interimmedical history : got nervous with shingles vaccine and did not get it, will let me know if interested Watching diet and exercise : yes Routine labs : Reviewed and stable Routine HM : allergic to flu shot and not bring to do COVID booster and shingles vaccine yet. Hm change for colonoscopy to not needed Chronic medical problem: reviewed and stable Physical Exam Vitals: 07/02/23 0816 Temp: 37.2 C (98.9 F) Pulse: 60 SpO2: 98% BP: 126/60 BMI: 34.95 Physical Exam Vitals reviewed. Constitutional: General: She is not in acute distress. Appearance: She is normal weight. She is not ill-appearing. HENT: Head: Normocephalic. Mouth/Throat: Mouth: Mucous membranes are moist. Pharynx: Oropharynx is clear. No oropharyngeal exudate or posterior oropharyngeal erythema. Cardiovascular: Rate and Rhythm: Normal rate and regular rhythm. Heart sounds: Normal heart sounds. No murmur heard. Pulmonary: Effort: Pulmonary effort is normal. No respiratory distress. Breath sounds: Normal breath sounds. No wheezing. Abdominal: General: There is no distension. Palpations: Abdomen is soft. There is no mass. Tenderness: There is abdominal tenderness (generalized specially the side and lower abdomen. Also mild tenderness epigastric region). Musculoskeletal: General: No swelling or tenderness. Cervical back: No rigidity or tenderness. Right lower leg: No edema. Left lower leg: No edema. Lymphadenopathy: Cervical: No cervical adenopathy. Skin: General: Skin is warm. Neurological: Mental Status: She is alert. I have reviewed the following results: CMP, Lipid Panel, Hemoglobin A1C, CBC, and B12 Assessment and Plan Generalized abdominal pain Seems combination of constipation and GERD - XR ABDOMEN 1 VIEW- showed moderate constipation Patient to go back to Colace twice a day and MiraLax daily until symptoms resolved and then as needed Other constipation Seems like likely cause of symptoms Prediabetes Doing well on conservative measure Continue to watch diet and exercise Wwill follow lab closely - HEMOGLOBIN A1C; Future Hyperlipidemia with target LDL less than 100 Stable Continue current treatment as directed - COMPREHENSIVE METABOLIC PANEL; Future - LIPID PANEL WITH DIRECT LDL IF TG IS HIGH; Future HTN, goal below 140/90 Stable Continue current treatment as directed - COMPREHENSIVE METABOLIC PANEL; Future History of nonmelanoma skin cancer Dermatology following History of Guillain-Hamilton syndrome Allergy to influenza vaccine Primary osteoarthritis of both knees Urge incontinence of urine Special screening for malignant neoplasms, colon Does not need screening colonoscopy but certainly can have diagnostic when needed Urinary incontinence without sensory awareness Vitamin D deficiency - 25-HYDROXY VITAMIN D; Future Hiatal hernia with GERD - Famotidine 20 MG Oral Tablet (Pepcid); Take 1 Tablet by mouth in the morning. Restarted daily Wrap-Up Time: I spent a total of 40-54 minutes (exact time 42 mins) on the date of service in preparation, delivery, and documentation of the care provided to Maurizio Betancourt excluding any time spent in the performance of separately billed services. documented in this encounter Nursing Notes * Nevin Sarmiento LPN - 07/02/2023 8:12 AM EDT Chief Complaint Patient presents with Follow Up 6mo return Abdominal Pressure C/o mid abdominal pressure that sometimes radiates down into her pubic area. She does have hiatal hernia and is concerned for that and started taking metamucil again recently and has since stopped infear that may have caused issues. Having regular BM. documented in this encounter Plan of Treatment Upcoming Encounters Date Type Department Care Team (Late st Contact Info) Description 07/09/2023 9:40 AM EDT Office Visit Dermatology [facility] [address] [facility] [place] [address] Nadya Ramos PA-C [address] [facility] [place] [phone] 01/07/2024 8:20 AM EDT Office Visit General Internal Medicine [facility] [address] [facility] [place] [address] Maria Luisa Nunez MD [address] [facility] [place] [address] Scheduled Orders Name Type Priority Associated Diagnoses Orde r Schedule COMPREHENSIVE METABOLIC PANEL Lab Routine Hyperlipidemia with target LDL less than 100 HTN, goal below 140/90 Expected: 01/02/2024, Expires: 07/01/2024 LIPID PANEL WITH DIRECT LDL IF TG IS HIGH Lab Routine Hyperlipidemia with target LDL less than 100 Expected: 01/02/2024, Expires: 07/01/2024 HEMOGLOBIN A1C Lab Routine Prediabetes Expected: 01/02/2024, Expires: 07/01/2024 25-HYDROXY VITAMIN D Lab Routine Vitamin D deficiency Expected: 01/02/2024, Expires: 07/01/2024 Scheduled Procedures Name Priority Associated Diagnoses Date/Ti me COLONOSCOPY FLEXIBLE PROXIMA L DIAGNOSTIC Recall Screening for malignant neoplasm of colon Health Maintenance Due Date Last Done Comments Zoster Vaccines (1 of 2) 1997 COVID-19 Vaccine (5 - season) 2022 01/01/2022, 02/03/2021, 06/07/2020, Additional history exists Influenza Vaccine (FLU shot) (#1) 2022 Depression Screening 07/02/2023 07/01/2022 DXA Scan 2024 02/24/2017 GFR 06/15/2024 06/16/2023, 12/06, 06/19/2022, Additional history exists HbA1c 06/15/2024 06/16/2023, 12/06, 06/19/2022, Additional history exists Albumin/Creatinine Ratio 06/19/2025 06/19/2022 DTaP,Tdap,and Td Vaccines (2 - Td or Tdap) 12/08/2029 12/09/2019 COLONOSCOPY-EVERY 5 YRS AGES 18-100 Discontinued 04/20/2018, 04/20/2018 Pneumococcal Vaccine: 65+ Years Completed 12/14/2021, 12/08/2020 [...] this encounter Medical Devices Implanted Type Area Solar Sales Representative Device Identifier Shelf Expiration Date Model / Serial / Lot Lens Intraoc 18.0 - [id number] - [id number] Implanted:Qty: 1 on 10/23/2021 by Eddie Perla MD at [facility] Left: Eye [employer] 06/04/2026 [id number] / [id number] / [id number] Lens Intraoc 16.5 - [id number] - [id number] Implanted:Qty: 1 on 11/13/2021 by Eddie Perla MD at [facility] Right: Eye [employer] 05/07/2026 [id number] / [id number] / [id number] documented as of this encounter Procedures Procedure Name Priority Date/Time Associated Diagnosis Comments XR ABDOMEN 1 VIEW STAT 07/02/2023 9:1 0 AM EDT Generalized abdominal pain documented in this encounter Results * XR ABDOMEN 1 VIEW (07/02/2023 9:10 AM EDT) Anatomical Region Laterality Modality Abdomen, Pelvis Computed Radiogr aphy 07/02/2023 9:38 AM EDT Impressions 07/02/2023 9:36 AM EDT IMPRESSION Moderate stool burden. Narrative 07/02/2023 9:36 AM EDT EXAM XR ABDOMEN 1 VIEW-07/02/2023 9:10 am HISTORY abd pain , bloating with irregular BM COMPARISON NONE. TECHNIQUE 3 AP supine views FINDINGS Non obstructive bowel gas pattern. Moderate stool burden. No evidence of mass or organomegaly. Procedure Note Arun Lujan MD - 07/02/2023 EXAM XR ABDOMEN 1 VIEW-07/02/2023 9:10 am HISTORY abd pain , bloating with irregular BM COMPARISON NONE. TECHNIQUE 3 AP supine views FINDINGS Non obstructive bowel gas pattern. Moderate stool burden. No evidence ofmass or organomegaly. IMPRESSION IMPRESSION Moderate stool burden. Maria Luisa Nunez MD RADIOLOGY (RAD GENER AL) documented in this encounter Visit Diagnoses Diagnosis Generalized abdominal pain- Primary Abdominal pain, generalized Other constipation Prediabetes Other abnormal glucose Hyperlipidemia with target LDL less than 100 Other and unspecified hyperlipidemia HTN, goal below 140/90 Unspecified essential hypertension History of nonmelanoma skin cancer Personal history of other malignant neoplasm of skin History of Guillain-Hamilton syndrome Personal history of other disorders of nervous system and sense organs Allergy to influenza vaccine Other serum reaction due to vaccination Primary osteoarthritis of both knees Primary localized osteoarthrosis, lower leg Urge incontinence of urine Urge incontinence Special screening for malignant neoplasms, colon Urinary incontinence without sensory awareness Incontinence without sensory awareness Vitamin D deficiency Unspecified vitamin D deficiency Hiatal hernia with GERD documented in this encounter Advance Directives Latest Code Status on File Code Status Date Activated Date Inactivated Comments No Code 11/13/2021 6:57 AM 11/13/2021 1:12 PM This or kavya reflects the patients wishes and were consensually agreed upon. Question Answer Comments Discussion of Advance Directives occurred with: Patient Does the patient have a Living Will? No Does the patient have Health Care Power of [employer]? No Care Teams Rehabilitation Teacher Relationship Specialty Start Date End Date Maria Luisa Nunez MD [address] [place] [address] PCP - General Internal Medicine 12/29/17 documented as of this encounter
--- OUTSIDE RECORDS SUMMARY | 2023-10-03 07:14 | External Medical Summary ---
Author Name Unknown Address Unknown Organization [id number]:[facility] - [address] [facility] [address] Laboratory Report Ordering Provider Test Date Status JIMMY CHANEY 06/16/2023 07:48:47 Final Observation Date Value Abnormality Reference (Units ) Status HbA1C 06/16/2023 07:48:47 6.1 Above high normal 4. 0-5.6 (%) Final The use of HbA1c to monitor glycemic status is based on normal hemoglobin and HbA composition. This test should not be used in patients with abnormal hemoglobin that affects the half life of the red blood cell or the in vivo glycation rates. Glucose, estimated average 06/16/2023 07:48:47 128 Above high normal <126 (mg/dL) Addy aguilar Performing Location [facility] - [address] [facility] [address]
--- OUTSIDE RECORDS SUMMARY | 2023-10-03 07:14 | External Medical Summary | Summary of Care ---
Author Name Unknown Organization [facility] Address [address] [facility] [place] [address] Phone [phone] Care Team Providers Care Supervisor Self Service Store Name Role Phone Maria Luisa Nunez MD Primary Care Provider [phone] Reason for Visit * Reason Onset Date Comments Medication Refill 01/02/2023 Famotidine Encounter Details Date Type Department Care Team (Late st Contact Info) Description 01/02/2023 Refill General Internal Medicine [facility] [address] [facility] [place] [id number] Maria Luisa Nunez MD [address] [place] [address] Allergies Active Allergy Reactions Criticality Noted Date Comments Influenza Vaccines Neuro complications (Please comment) 03/08/2019 GB syndrome Oxybutynin 03/22/2019 Penicillins Rash 12/29/2017 documented as of this encounter (statuses as of 04/29/2023) Medications Medication Sig Dispensed Refills Start Date End Date Status Cholecalciferol (VITAMIN D-3) 1000 units Capsule Take 1 Capsule by mouth in the morning. 0 12/29/2017 Active Vitamin B-12 5000 MCG Oral Tablet Disintegrating Take by mouth. 0 12/08/2020 Active Benefiber Oral Powder Take 1 Tbsf in a glass of water daily 0 06/07/2021 Active Docusate Sodium 100 MG Oral Capsule (Colace)Indications:O ther constipation Take by mouth 1 Capsule 2 times a day as needed for Constipation. 60 Capsule 11 12/14/2021 Active Polyethylene Glycol 3350 17 GM/SCOOP Oral [...] EVERY DAY 90 Tablet 3 12/11/2022 Active Famotidine 20 MG Oral Tablet (Pepcid)Indications:H iatal hernia with GERD Take 1 Tablet by mouth in the morning. 90 Tablet 3 01/01/2023 Active documented as of this encounter (statuses as of 04/29/2023) Active Problems Problem Noted Date Diagnosed Date [...] 12/29/2017 HTN, goal below 140/90 History of Guillain-[place] syndrome documented as of this encounter (statuses as of 04/29/2023) Resolved Problems Problem Noted Date Diagnosed Date Resolved Date Influenza vaccination contraindicated 09/01/2018 06/07/2021 documented as of this encounter (statuses as of 04/29/2023) Immunizations Name Administration Dates Next Due COVID-19 [...] Used Date Smoking Tobacco: Former Cigarettes 0.5 1 960 - 1978 Smokeless Tobacco: Never [...] on file documented as of this encounter Miscellaneous Notes * Telephone Encounter - Maria Luisa Nunez MD - 01/02/2023 5:02 PM EDT She can get OTC or can send omeprazole . Please check and let me know * Telephone Encounter - Josiane Flores OSA - 01/02/2023 12:29 PM EDT Received fax from [facility] # [id number] # [phone] Alternative Requested for Famotidine 20 mg Tab Med is not covered by insurance documented in this encounter Plan of Treatment Upcoming Encounters Date Type Department Care Team (Late st Contact Info) Description 06/23/2023 9:45 AM EDT Imaging Radiology [address], [place] [address] [place] [address] 07/02/2023 8:20 AM EDT Office Visit General Internal Medicine [facility] [address] [facility] [place] [address] Maria Luisa Nunez MD [address] [facility] [place] [address] 07/09/2023 9:40 AM EDT Office Visit Dermatology [facility] [address] [place] [address] Nadya Ramos PA-C [address] [place] [phone] Scheduled Procedures Name Priority Associated Diagnoses Date/Ti me COLONOSCOPY FLEXIBLE PROXIMA L DIAGNOSTIC Recall Screening for malignant neoplasm of colon Health Maintenance Due Date Last Done Comments Zoster Vaccines (1 of 2) 1997 COVID-19 Vaccine (2022- season) 2022 01/01/2022, 02/03/2021, 06/07/2020, Additional history exists Influenza Vaccine (FLU shot) (#1) 2022 COLONOSCOPY-EVERY 5 YRS AGES 18-100 04/20/2023 04/20/2018, 04/20/2018 Depression Screening 07/02/2023 07/01/2022 GFR 12/24/2023 12/23/2022, 06/05, 12/07/2021, Additional history exists HbA1c 12/24/2023 12/23/2022, 06/05, 12/07/2021, Additional history exists DXA Scan 2024 02/24/2017 Albumin/Creatinine Ratio 06/19/2025 06/19/2022 DTaP,Tdap,and Td Vaccines [...] this encounter Medical Devices Implanted Type Area Checker/Stocker Device Identifier Shelf Expiration Date Model / Serial / Lot Lens Intraoc 18.0 - [id number] - [id number] Implanted:Qty: 1 on 10/23/2021 by Eddie Perla MD at OR [facility] Left: Eye [employer] 06/04/2026 [id number] / [id number] / [id number] Lens Intraoc 16.5 - [id number] - [id number] Implanted:Qty: 1 on 11/13/2021 by Eddie Perla MD at OR [facility] Right: Eye [employer] LOMB 05/07/2026 [id number] / [id number] / [id number] documented as of this encounter Advance Directives [...] the patient have Health Care Power of Technical Support Analyst? No Care Teams Supervisor Self Service Store Relationship Specialty Start Date End Date Maria Luisa Nunez MD [address] [place] [address] PCP - General Internal Medicine 12/29/17 documented as of this encounter
--- OUTSIDE RECORDS SUMMARY | 2023-10-03 07:14 | External Medical Summary ---
Author Name Unknown Address Unknown Organization K01:[facility] [place] [address] [address] Laboratory Report Ordering Provider Test Date Status JIMMY CHANEY 06/16/2023 07:48:47 Final Observation Date Value Abnormality Reference (Units ) Status Vitamin B12 06/16/2023 07:48:47 [phone] (pg/mL) Final Performing Location [facility] - [address] [place] [address]
--- OUTSIDE RECORDS SUMMARY | 2023-10-03 07:14 | External Medical Summary | Summary of Care ---
Author Name Unknown Organization [facility] Address [address] [place] [place] [address] Phone [phone] Care Team Providers Care Transformer Assembly Supervisor Name Role Phone Maria Luisa Nunez MD Primary Care Provider [phone] Reason for Visit * Reason Onset Date Comments Health Maintenance 05/06/2023 Encounter Details Date Type Department Care Team (Late st Contact Info) Description 05/06/2023 Telephone General Internal Medicine [facility] [address] [facility] [place], [place] [phone] Maria Luisa Nunez MD [address] [place] [address] Health Maintenance Allergies Active Allergy Reactions Criticality Noted Date Comments Influenza Vaccines Neuro complications (Please comment) 03/08/2019 GB syndrome Oxybutynin 03/22/2019 Penicillins Rash 12/29/2017 documented as of this encounter (statuses as of 05/06/2023) Medications Medication Sig Dispensed Refills Start Date [...] the morning. 90 Tablet 3 01/01/2023 Active Robitussin Cough+Chest Mike DM 10-200 MG Oral Capsule (Dextromethorphan-gua iFENesin)Indications: Acute bronchitis, antibiotics not indicated Take by mouth. 0 Active Albuterol Sulfate HFA 108 (90 Base) MCG/ACT Inhalation Aerosol SolutionIndications:A cute bronchitis, antibiotics not indicated Inhale 2 Puffs by mouth every 6 hours as needed for Cough. 8.5 g 3 02/03/2023 Active documented as of this encounter (statuses as of 05/06/2023) Active Problems Problem Noted Date Diagnosed Date [...] 12/29/2017 HTN, goal below 140/90 History of Guillain-[place] syndrome documented as of this encounter (statuses as of 05/06/2023) Resolved Problems Problem Noted Date Diagnosed Date Resolved Date Influenza vaccination contraindicated 09/01/2018 06/07/2021 documented as of this encounter (statuses as of 05/06/2023) Immunizations Name Administration Dates Next Due COVID-19 [...] Date Smoking Tobacco: Former Cigarettes 0.5 1 0 - 1978 Smokeless Tobacco: Never [...] encounter Miscellaneous Notes * Telephone Encounter - Ericka Pelletier LPN - 05/06/2023 11:48 AM EST Care Gaps Comprehensive Care Outreach Last Office/Telemedicine Visit: 02/03/2023 (in office), 08/11/2019 (telemedicine) Next Office Visit: 07/02/2023 Hemoglobin AIC Results: Lab Results Component Value Date/Time HEMOGLOBIN A1C - [facility] 6.1 (H) 12/23/2022 07:08 AM HEMOGLOBIN A1C - [facility] 6.2 (H) 06/19/2022 07:09 AM HEMOGLOBIN A1C - [facility] 5.8 (H) 12/07/2021 07:14 AM HEMOGLOBIN A1C - [facility] 6.1 (H) 09/21/2019 07:00 AM HEMOGLOBIN A1C - [facility] 6.0 (H) 02/23/2019 07:30 AM HEMOGLOBIN A1C - [facility] 6.0 (H) 08/22/2018 08:17 AM HEMOGLOBIN A1C POCT - [facility] 5.7 (H) 12/08/2020 08:23 AM BP Readings from Last 1 Encounters: 02/03/23 128/70 Reviewed Health Maintenance below: Health Maintenance Topic Date Due Zoster Vaccines (1 of 2) Never done Influenza Vaccine (FLU shot) (1) Never done COVID-19 Vaccine (2022- season) 2022 COLONOSCOPY-EVERY 5 YRS AGES 18-100 04/20/2023 Depression Screening 07/02/2023 colon Care Gap Outreach Action Taken: Left message documented in this encounter Plan of Treatment Upcoming Encounters Date Type Department Care Team (Late st Contact Info) Description 06/23/2023 9:45 AM EDT Imaging Radiology [facility] [address] [facility] [address] [place] [id number] 07/02/2023 8:20 AM EDT Office Visit General Internal Medicine [address] [place] [address] [place] [address] Maria Luisa Nunez MD [address] [place] [address] 07/09/2023 9:40 AM EDT Office Visit Dermatology [address] [place] [address] [place], [place] [address] Nadya Ramos PA-C [address] [place] [phone] Scheduled Procedures Name Priority [...] this encounter Medical Devices Implanted Type Area Gut Puller Device Identifier Shelf Expiration Date Model / Serial / Lot Lens Intraoc 18.0 - [id number] - [id number] Implanted:Qty: 1 on 10/23/2021 by PanEddie beltran MD at OR [facility] Left: Eye [employer] 06/04/2026 [id number] / [id number] / [id number] Lens Intraoc 16.5 - [id number] - [id number] Implanted:Qty: 1 on 11/13/2021 by Eddie Perla MD at OR [facility] Right: Eye [employer] LOMB 05/07/2026 [id number] / [id number] / [id number] documented as of this encounter Advance Directives [...] the patient have Health Care Power of Colors Custodian? No Care Teams Transformer Assembly Supervisor Relationship Specialty Start Date End Date Maria Luisa Nunez MD [address] [place] [address], [place] [address] PCP - General Internal Medicine 12/29/17 documented as of this encounter
--- OUTSIDE RECORDS SUMMARY | 2023-10-03 07:14 | External Medical Summary | Summary of Care ---
Author Name Unknown Organization [facility] Address [address] [facility] [place] [address] Phone [phone] Care Team Providers Care Award Machine Operator Name Role Phone Maria Luisa Nunez MD Primary Care Provider [phone] Reason for Visit * Reason Comments eRx-Medication Refill Encounter Details Date Type Department Care Team (Late st Contact Info) Description 08/04/2023 Refill General Internal Medicine [facility] [address] [facility] [place] [id number] Maria Luisa Nunez MD [address] [facility] [place] [phone] HTN, goal below 140/90; Stress bladder incontinence, female Allergies Active Allergy Reactions Criticality Noted Date Comments Influenza Vaccines Neuro complications (Please comment) 03/08/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 0 12/29/2017 Active Vitamin B-12 5000 MCG Oral Tablet Disintegrating Take by mouth. 0 12/08/2020 Active Polyethylene Glycol 3350 17 GM/SCOOP Oral PowderIndications:O ther constipation Take 17 g by mouth as needed for Constipation. Dissolve one heaping tablespoon in 8 ounces of water or juice. 0 12/14/2021 Active Zoster Vac Recomb Adjuvanted 50 MCG/0.5ML Intramuscular Suspension Reconstituted (Shingrix)Indicatio ns:Need for shingles vaccine Inject 0.5 mL into a large muscle now and repeat dose in 60 to 180 days 1 Each 1 07/01/2022 Active amLODIPine Besylate 5 MG Oral Tablet (Norvasc) TAKE 1 TABLET BY MOUTH EVERY DAY 90 Tablet 3 12/11/2022 Active Albuterol Sulfate HFA 108 (90 Base) MCG/ACT Inhalation Aerosol SolutionIndications :Acute bronchitis, antibiotics not indicated Inhale 2 Puffs by mouth every 6 hours as needed for Cough. 8.5 g 3 02/03/2023 Active Docusate Sodium 100 MG Oral Capsule (Colace)Indications :Other constipation Take 1 Capsule by mouth in the morning. Add 2nd one if needed. 0 07/02/2023 Active Famotidine 20 MG Oral Tablet (Pepcid)Indications :Hiatal hernia with GERD Take 1 Tablet by mouth in the morning. 90 Tablet 3 07/02/2023 Active Atorvastatin Calcium 10 MG Oral Tablet (Lipitor)Indication s:Hyperlipidemia with target LDL less than 100 TAKE 1 TABLET BY MOUTH EVERY DAY 90 Tablet 3 07/15/2023 Active hydroCHLOROthiazide 12.5 MG Oral TabletIndications:H TN, goal below 140/90,Stress bladder incontinence, female TAKE 1 TABLET BY MOUTH EVERY DAY IN THE MORNING 90 Tablet 3 08/06/2023 Active Valsartan 320 MG Oral Tablet (Diovan) TAKE 1 TABLET BY MOUTH EVERY DAY 90 Tablet 3 08/06/2023 Active hydroCHLOROthiazide 12.5 MG Oral Tablet (Hydrodiuril)Indica tions:HTN, goal below 140/90,Stress bladder incontinence, female Take 1 Tablet by mouth in the morning. 90 Tablet 3 09/16/2022 08/06/19 24 Discontinued Valsartan 320 MG Oral Tablet (Diovan) TAKE 1 TABLET BY MOUTH EVERY DAY 90 Tablet 3 10/14/2022 08/06/19 24 Discontinued documented as of this encounter (statuses as of 08/06/2023) Active Problems Problem Noted Date Diagnosed Date [...] 12/29/2017 HTN, goal below 140/90 History of Guillain-[place] syndrome documented as of this encounter (statuses as of 08/06/2023) Resolved Problems Problem Noted Date Diagnosed Date Resolved Date Influenza vaccination contraindicated 09/01/2018 06/07/2021 documented as of this encounter (statuses as of 08/06/2023) Immunizations Name Administration Dates Next Due COVID-19 [...] Former Cigarettes 0.5 19 1 960 - 1979 Smokeless Tobacco: Never Alcohol Use Standard Drinks/Week [...] encounter Miscellaneous Notes * Telephone Encounter - Sree Schultz [facility] - 08/06/2023 10:45 AM EDTSigned Prescriptions: Disp Refills hydroCHLOROthiazide 12.5 MG Oral Tablet 90 Tab*3 Sig: TAKE 1 TABLET BY MOUTH EVERY DAY IN THE MORNINGAuthorizing Provider: Alysa NUNEZ User: SREE SCHULTZ Valsartan 320 MG Oral Tablet (Diovan) 90 Tab*3 Sig: TAKE 1 TABLET BY MOUTH EVERY DAYAuthorizing Provider: Alysa NUNEZ User: SREE SCHULTZ documented in this encounter Plan of Treatment Upcoming Encounters Date Type Department Care Team (Late st Contact Info) Description 01/07/2024 8:20 AM EDT Office Visit General Internal Medicine [place] [address] [place] [address] Maria Luisa Nunez MD [address] [facility] [place] [address] 08/25/2024 10:40 AM EDT Office Visit Dermatology [facility] [address] [facility] [place] [address] Nadya Ramos PA-C [address] [facility] [place] [phone] Scheduled Procedures Name Priority Associated Diagnoses Date/Ti me COLONOSCOPY FLEXIBLE PROXIMA L DIAGNOSTIC Recall Screening for malignant neoplasm of colon Health Maintenance Due Date Last Done Comments Zoster Vaccines (1 of 2) 1997 COVID-19 Vaccine (2022-24 season) 2022 01/01/2022, 02/03/2021, 06/07/2020, Additional history exists Depression Screening 07/02/2023 07/01/2022 Influenza Vaccine (FLU shot) (Season Ended) 2023 DXA Scan 2024 02/24/2017 GFR 06/15/2024 06/16/2023, 12/06, 06/19/2022, Additional history exists HbA1c 06/15/2024 06/16/2023, 12/06, 06/19/2022, Additional history exists Albumin/Creatinine Ratio 06/19/2025 06/19/2022 DTaP,Tdap,and Td Vaccines (2 - Td or Tdap) 12/08/2029 12/09/2019 RETIRED - COLONOSCOPY-EVERY 5 YRS AGES 18-100 Discontinued 04/20/2018, [...] this encounter Medical Devices Implanted Type Area Armature Winder Helper Repair Device Identifier Shelf Expiration Date Model / Serial / Lot Lens Intraoc 18.0 - [id number] - [id number] Implanted:Qty: 1 on 10/23/2021 by Eddie Perla MD at OR [facility] Left: Eye BAUSCH & LOMB 06/04/2026 [id number] / [id number] / [id number] Lens Intraoc 16.5 - [id number] - [id number] Implanted:Qty: 1 on 11/13/2021 by Eddie Perla MD at OR [facility] Right: Eye BAUSCH & LOMB 05/07/2026 [id number] / [id number] / [id number] documented as of this encounter Visit Diagnoses Diagnosis HTN, goal below 140/90 Unspecified essential hypertension Stress bladder incontinence, female Female stress incontinence documented in this encounter Advance Directives Latest [...] the patient have Health Care Power of Tow Operator? No Care Teams Award Machine Operator Relationship Specialty Start Date End Date Maria Luisa Nunez MD [address] [facility] [place] [address] PCP - General Internal Medicine 12/29/17 documented as of this encounter
--- OUTSIDE RECORDS SUMMARY | 2023-10-03 07:14 | External Medical Summary | Summary of Care ---
Author Name Unknown Organization [facility] Address [address] [facility] [place] [address] Phone [phone] Care Team Providers Care Bell Cleaner Name Role Phone Maria Luisa Nunez MD Primary Care Provider [phone] Reason for Visit * Reason Comments Follow Up Skin check- pt has a lesion on the L. Side of face she would like evaluated Encounter Details Date Type Department Care Team (Late st Contact Info) Description 07/09/2023 9:40 AM EDT Office Visit Dermatology [facility] [place] [address] [facility] [place] [address] Nadya Ramos PA-C [address] [facility] [place] [phone] Skin exam, screening for cancer*; Skin tumor; Family history of melanoma; Scar; Hx of actinic keratosis; Lichenoid actinic keratosis; History of nonmelanoma skin cancer Allergies Active Allergy Reactions Criticality Noted Date Comments Influenza Vaccines Neuro complications (Please comment) 03/08/2019 GB syndrome Oxybutynin 03/22/2019 Penicillins Rash 12/29/2017 documented as of this encounter (statuses as of 07/09/2023) Medications Medication Sig Dispensed Refills Start Date [...] as of this encounter (statuses as of 07/09/2023) Active Problems Problem Noted Date Diagnosed Date [...] 12/29/2017 HTN, goal below 140/90 History of Guillain-Ama syndrome documented as of this encounter (statuses as of 07/09/2023) Resolved Problems Problem Noted Date Diagnosed Date Resolved Date Influenza vaccination contraindicated 09/01/2018 06/07/2021 documented as of this encounter (statuses as of 07/09/2023) Immunizations Name Administration Dates Next Due COVID-19 [...] as of this encounter Progress Notes * Nadya Ramos PA-C - 07/09/2023 9:47 AM EDT SUBJECTIVE: History of Present Illness: Maurizio Betancourt is a 78 year old female seen today for follow up of lesion to cheek. Date Last Appointment: 07/03/2022 (in office), Visit date not found (telemedicine) Hx of SCC R forearm 2021, SCC L inman 2019, SCCis R lateral lower leg 2018, SCC L dorsal hand x 2 (no records) Lesions of concern: burns type pimple to L cheek x 2-3 months, recently (few days ago) applied warm compress and a significant amount of drainage was released. Feels much better Sister hx MM x 2 REVIEW OF SYSTEMS: SKIN: No other new or changing moles. HEME/LYMPH: No new or enlarging lumps or bumps. MEDICA TIONS: Current Outpatient Medications Medication Sig Dispense Refill Cholecalciferol (VITAMIN D-3) 1000 units Capsule Take 1 Capsule by mouth in the morning. Vitamin B-12 5000 MCG Oral Tablet Disintegrating Take by mouth. Polyethylene Glycol 3350 17 GM/SCOOP Oral Powder Take 17 g by mouth as needed for Constipation. Dissolve one heaping tablespoon in 8 ounces of water or juice. Atorvastatin Calcium 10 MG Oral Tablet (Lipitor) TAKE 1 TABLET BY MOUTH EVERY DAY 90 Tablet 3 hydroCHLOROthiazide 12.5 MG Oral Tablet (Hydrodiuril) Take 1 Tablet by mouth in the morning. 90 Tablet 3 Valsartan 320 MG Oral Tablet (Diovan) TAKE 1 TABLET BY MOUTH EVERY DAY 90 Tablet 3 amLODIPine Besylate 5 MG Oral Tablet (Norvasc) TAKE 1 TABLET BY MOUTH EVERY DAY 90 Tablet 3 Docusate Sodium 100 MG Oral Capsule (Colace) Take 1 Capsule by mouth in the morning. Add 2nd one ifneeded. Famotidine 20 MG Oral Tablet (Pepcid) Take 1 Tablet by mouth in the morning. 90 Tablet 3 Zoster Vac Recomb Adjuvanted 50 MCG/0.5ML Intramuscular Suspension Reconstituted (Shingrix) Inject 0.5 mL into a large muscle now and repeat dose in 60 to 180 days 1 Each 1 Albuterol Sulfate HFA 108 (90 Base) MCG/ACT Inhalation Aerosol Solution Inhale 2 Puffs by mouth every 6 hours as needed for Cough. 8.5 g 3 No current facility-administered medications for this visit. ALLERG IES: Influenza vaccines, Oxybutynin, and Penicillins OBJECTIVE: GEN: Healthy, alert, no distress, appears oriented, pleasant, and cooperative. SKIN: Detailed exam of hair, face including lids and lips, neck, chest, abdomen, back, bilateral upper ext. (arm, hand, fingers), bilateral lower ext. (leg, foot, toes), and palpation of scalp completed and are normal except: 1. Scars- arms, legs 2. R upper arm- keratotic papules atop thin scaly patch. 3. L cheek- tiny pink healing scar ASSESS MENT/PLAN: 1. Hx NMSC - no evidence of recurrence Discussed sun protection with patient including proper use of sunscreens and protective clothing. ABCDs explained 2. ISK vs LK, r/o Alem and other NMSC. Biopsy of the lesion noted above to establish and confirm diagnosis. The procedure, risks, benefits, alternatives and expected outcomes were discussed with the patient and consent was obtained. Time out called. Patient identified, procedure verified, site identified and verified. Patient and staff present in agreement. Area prepped with alcohol and anesthetized with 0.5% lidocaine with epinephrine at 1:200,000 concentration. Biopsy of lesion performed. 20% AlCl and bandaging applied. Specimen sent to pathology. Patient instructed in routine post-op care. 3. Favor ruptured EIC but explained that skin ca can start as a pimple. No sign of malignancy on dermoscopy. Pt will watch the area for 1 month and if it is not completely healed in a month, will notify us 4. Fam hx MM. Discussed sun protection with patient including proper use of sunscreens and protective clothing. Discussed abced Follow-up: 1 year There were no barriers tolearning and no other pain was related to today's visit. The patient and/or person accompanying patient demonstrates understanding of the visit and treatment. Nadya Ramos PA-C 07/09/2023 9:47 AM documented in this encounter Nursing Notes * Dione Nails, [place] - 07/09/2023 9:29 AM EDT Patient identified by name and date of . Do you have any concerns about pain management for today's visit? No Living Will or Advance Directive for Health Care as noted on problem list. [facility] is a way you can talk to your provider online through e-mail. Would you like to sign up? I can activate it for you? ALREADY ACTIVE Chief Complaint Patient presents with Follow Up Skin check- pt has a lesion on the L. Side of face she would like evaluated documented in this encounter Plan of Treatment Upcoming Encounters Date Type Department Care Team (Late st Contact Info) Description 01/07/2024 8:20 AM EDT Office Visit General Internal Medicine [facility] [address] [facility] [place] [address] Maria Luisa Nunez MD [address] [facility] [place] [address] 08/25/2024 10:40 AM EDT Office Visit Dermatology [facility] [address] [facility] [place] [address] Nadya Ramos PA-C [address] [facility] [place] [phone] Pending Results Name Type Priority Associated Diagnoses Date /Time SURGICAL PATHOLOGY Pathology Routine Skin tumor 07/09/2023 10:05 AM EDT Scheduled Procedures Name Priority Associated Diagnoses Date/Ti me COLONOSCOPY FLEXIBLE PROXIMA L DIAGNOSTIC Recall Screening for malignant neoplasm of colon Health Maintenance Due Date Last Done Comments Zoster Vaccines (1 of 2) 1997 COVID-19 Vaccine ( season) 2022 01/01/2022, 02/03/2021, 06/07/2020, Additional history [...] this encounter Medical Devices Implanted Type Area Sewer And Drain Technician Device Identifier Shelf Expiration Date Model / Serial / Lot Lens Intraoc 18.0 - [id number] - [id number] Implanted:Qty: 1 on 10/23/2021 by Eddie Perla MD at OR [facility] Left: Eye BAUSCH [employer] LOMB 06/04/2026 [id number] / [id number] / [id number] Lens Intraoc 16.5 - [id number] - [id number] Implanted:Qty: 1 on 11/13/2021 by Eddie Perla MD at OR [facility] Right: Eye BAUSCH & LOMB 05/07/2026 [id number] / [id number] / [id number] documented as of this encounter Visit Diagnoses Diagnosis Skin exam, screening for cancer- Primary Screening for malignant neoplasm of the skin Skin tumor Neoplasm of uncertain behavior of skin Family history of melanoma Family history of other specified malignant neoplasm Scar Scar condition and fibrosis of skin Hx of actinic keratosis Personal history of diseases of skin and subcutaneous tissue Lichenoid actinic keratosis Actinic keratosis History of nonmelanoma skin cancer Personal history of other malignant neoplasm of skin documented in this encounter Advance Directives Latest [...] the patient have Health Care Power of Sports Information Director? No Care Teams Bell Cleaner Relationship Specialty Start Date End Date Maria Luisa Nunez MD 200 [place] [address] PCP - General Internal Medicine 12/29/17 documented as of this encounter
--- OUTSIDE RECORDS SUMMARY | 2023-10-03 07:14 | External Medical Summary | Summary of Care ---
Author Name Unknown Organization [facility] Address [address] [facility] [place] [address] Phone [phone] Care Team Providers Care Batch Mixer Name Role Phone Maria Luisa Nunez MD Primary Care Provider [phone] Reason for Visit * Reason Comments Follow Up Patient here for a f ew lesions on her lower legs. Encounter Details Date Type Department Care Team (Late st Contact Info) Description 09/25/2023 10:00 AM EDT Office Visit Dermatology [facility] [address] [place] [address] Nadya Ramos PA-C [address] [place] [phone] Skin tumor* Allergies Active Allergy Reactions Criticality Noted Date Comments Influenza Vaccines Neuro complications (Please comment) 03/08/2019 GB syndrome Oxybutynin 03/22/2019 Penicillins Rash 12/29/2017 documented as of this encounter (statuses as of 09/27/2023) Medications Medication Sig Dispensed Refills Start Date End Date Status Cholecalciferol (VITAMIN D-3) 1000 units Capsule Take 1 Capsule by mouth in the morning. 12/29/2017 Active Vitamin B-12 5000 MCG Oral Tablet Disintegrating Take by mouth. 12/08/2020 Active Polyethylene Glycol 3350 17 GM/SCOOP Oral PowderIndications:Oth er constipation Take 17 g by mouth as needed for Constipation. Dissolve one heaping tablespoon in 8 ounces of water or juice. 12/14/2021 Active Zoster Vac Recomb Adjuvanted 50 [...] the morning. Add 2nd one if needed. 07/02/2023 Active Famotidine 20 MG Oral Tablet (Pepcid)Indications:H iatal hernia with GERD Take 1 Tablet by mouth in the morning. 90 Tablet 3 07/02/2023 Active Atorvastatin Calcium 10 MG Oral Tablet (Lipitor)Indications: Hyperlipidemia with target LDL less than 100 TAKE 1 TABLET BY MOUTH EVERY DAY 90 Tablet 3 07/15/2023 Active hydroCHLOROthiazide 12.5 MG Oral TabletIndications:HTN , goal below 140/90,Stress bladder incontinence, female TAKE 1 TABLET BY MOUTH EVERY DAY IN THE MORNING 90 Tablet 3 08/06/2023 Active Valsartan 320 MG Oral Tablet (Diovan) TAKE 1 TABLET BY MOUTH EVERY DAY 90 Tablet 3 08/06/2023 Active documented as of this encounter (statuses as of 09/27/2023) Active Problems Problem Noted Date Diagnosed Date [...] 12/29/2017 HTN, goal below 140/90 History of Guillain-Christine syndrome documented as of this encounter (statuses as of 09/27/2023) Resolved Problems Problem Noted Date Diagnosed Date Resolved Date Influenza vaccination contraindicated 09/01/2018 06/07/2021 documented as of this encounter (statuses as of 09/27/2023) Immunizations Name Administration Dates Next Due COVID-19 [...] money to get more. Never true 07/01/2022 Utilities Answer Date Recorded Do you have trouble paying y our heating, water, or electric bill? (Adult - for ages 18 years and over) Not on file 09/23/2023 Is your family able to pay t he heat, water, or electric bill? (Household - for ages 0-17 years) Not on file 09/23/2023 Does your family have access to good internet? (Household - for ages 0-17 years) Not on file 09/23/2023 Social Connections Answer Date Recorded How often do you feel lonely or isolated from those around you? (Adult - for ages 18 years and over) Not on file 09/23/2023 Sex and Gender Information Value Date Recorded Sex Assigned at Female 09/01/2018 8:49 AM EDT Gender Identity Female 09/01/2018 8:49 AM EDT Sexual Orientation Straight 09/01/2018 8: 49 AM EDT Job Start Date Occupation Industry Not on file Not on file Not on file documented as of this encounter Progress Notes * Jaxson Nagy MD - 09/27/2023 9:27 AM EDT I have reviewed the charting notes and orders and associated images and agree with the assessment and plan of Nadya Ramos PA-C I was available for consultation during and after the visit Jaxson Nagy MD 09/27/2023 9:27 AM * Nadya Ramos PA-C - 09/25/2023 10:24 AM EDT SUBJECTIVE: History of Present Illness: Maurizio Betancourt is a 78 year old female seen today for follow up of lesions to legs that are new. Date Last Appointment: 07/09/2023 (in office), Visit date not found (telemedicine) 2 new lesions to L leg x 1 month and 1 new lesion to R leg REVIEW OF SYSTEMS: SKIN: No other new [...] in 8 ounces of water or juice. Zoster Vac Recomb Adjuvanted 50 MCG/0.5ML Intramuscular Suspension Reconstituted (Shingrix) Inject 0.5 mL into a large muscle now and repeat dose in 60 to 180 days 1 Each 1 amLODIPine Besylate 5 MG Oral Tablet (Norvasc) TAKE 1 TABLET BY MOUTH EVERY DAY 90 Tablet 3 Albuterol Sulfate HFA 108 (90 Base) MCG/ACT Inhalation Aerosol Solution Inhale 2 Puffs by mouth every 6 hours as needed for Cough. 8.5 g 3 Docusate Sodium 100 MG Oral Capsule (Colace) Take 1 Capsule by mouth in the morning. Add 2nd one ifneeded. Famotidine 20 MG Oral Tablet (Pepcid) Take 1 Tablet by mouth in the morning. 90 Tablet 3 Atorvastatin Calcium 10 MG Oral Tablet (Lipitor) TAKE 1 TABLET BY MOUTH EVERY DAY 90 Tablet 3 hydroCHLOROthiazide 12.5 MG Oral Tablet TAKE 1 TABLET BY MOUTH EVERY DAY IN THE MORNING 90 Tablet 3 Valsartan 320 MG Oral Tablet (Diovan) TAKE 1 TABLET BY MOUTH EVERY DAY 90 Tablet 3 No current facility-administered medications for this visit. ALLERG IES: Influenza vaccines, Oxybutynin, and Penicillins OBJECTIVE: GEN: Healthy, alert, no distress, appears oriented, pleasant, and cooperative. SKIN: Detailed exam of bilateral lower ext. (leg, foot, toes) completed and are normal except: A. L calf- 1cm firm nodule with crust. NMSC vs hypertrophic LP. B. L inman- 1cm firm nodule with crust. NMSC vs hypertrophic LP. C. R calf- tiny white scale atop pink papule. AK vs NMSC vs SK vs LK vs hypertrophic LP ASSESS MENT/PLAN: A. NMSC vs hypertrophic LP B. NMSC vs hypertrophic LP. C. AK vs NMSC vs SK vs LK vs hypertrophic LP Biopsies of the lesions noted above to establish and confirm diagnosis. The procedures, risks, benefits, alternatives and expected outcomes were discussed with the patient and consent was obtained. Time out called. Patient identified, procedure verified, site identified and verified. Patient and staff present in agreement. Areas prepped with alcohol and anesthetized with 0.5% lidocaine with epinephrine at 1:200,000 concentration. Shave biopsies of lesions performed. 20% AlCl and bandaging applied. Specimens sent to pathology. Patient instructed in routine post-op care. Follow-up: as scheduled before There were no barriers tolearning and no other pain was related to today's visit. The patient and/or person accompanying patient demonstrates understanding of the visit and treatment. Nadya Ramos PA-C 09/25/2023 10:24 AM documented in this encounter Nursing Notes * Lorena Ordonez LPN - 09/25/2023 10:06 AM EDT Chief Complaint Patient presents with Follow Up Patient here for a few lesions on her lower legs. documented in this encounter Plan of Treatment Upcoming Encounters Date Type Department Care Team (Late st Contact Info) Description 01/07/2024 8:20 AM EDT Office Visit General Internal Medicine [facility] [address] [facility] [place] [address] Maria Luisa Nunez MD 200 [facility] [place] [address] 08/25/2024 10:40 AM EDT Office Visit Dermatology [facility] [address] [place] [address] Nadya Ramos PA-C 200 [facility] [place] [phone] Pending Results Name Type Priority Associated Diagnoses Date /Time SURGICAL PATHOLOGY Pathology Routine Skin tumor 09/25/2023 10:24 AM EDT Scheduled Procedures Name Priority Associated [...] this encounter Medical Devices Implanted Type Area Javascript Front End Developer Device Identifier Shelf Expiration Date Model / Serial / Lot Lens Intraoc 18.0 - [id number] - [id number] Implanted:Qty: 1 on 10/23/2021 by Eddie Perla MD at OR [facility] Left: Eye BAUSCH [employer] LOMB 06/04/2026 [id number] / [id number] / [id number] Lens Intraoc 16.5 - [id number] - [id number] Implanted:Qty: 1 on 11/13/2021 by Eddie ePrla MD at OR [facility] Right: Eye BAUSCH & LOMB 05/07/2026 [id number] / [id number] / [id number] documented as of this encounter Procedures Procedure Name Priority Date/Time Associated Diagnosis Comments DERM IMAGE (SITE) Routine 09/25/2023 Skin tumor documented in this encounter Results * DERM IMAGE (SITE) (09/25/2023) 09/25/2023 Nadya Ramos PA-C DIGITAL PHOTOGR APHY documented in this encounter Visit Diagnoses Diagnosis Skin tumor- Primary Neoplasm of uncertain behavior of skin documented in this encounter Advance Directives * No Code (Latest Code Status on File) Date Activated Date Inactivated Comments 11/13/2021 6:57 AM 11/13/2021 1:12 PM This order ref lects the patients wishes and were consensually agreed upon. Question Answer Comments Discussion of Advance Directives occurred with: Patient Does the patient have a Living Will? No Does the patient have Health Care Power of Attor bekah? No Care Teams Batch Mixer Relationship Specialty Start Date End Date Maria Luisa Nunez MD [address] [place] [address] PCP - General Internal Medicine 12/29/17 documented as of this encounter
--- OUTSIDE RECORDS SUMMARY | 2023-10-03 07:14 | External Medical Summary | Summary of Care ---
Author Name Unknown Organization [facility] Address [address] [facility] [place] [address] Phone [phone] Care Team Providers Care Wet Process Technician Name Role Phone Maria Luisa Nunez MD Primary Care Provider Reason for Visit * Reason Comments Outpatient Testing Encounter Details Date Type Department Care Team (Late st Contact Info) Description 06/16/2023 8:20 AM EDT Laboratory Laboratory [facility] [address] [place] [phone] [facility] [address] [place] [address] Hyperlipidemia with target LDL less than 100; HTN, goal below 140/90; Prediabetes; Vitamin B 12 deficiency Allergies Active Allergy Reactions Criticality Noted Date Comments Influenza Vaccines Neuro complications (Please comment) 03/08/2019 GB syndrome Oxybutynin 03/22/2019 Penicillins Rash 12/29/2017 documented as of this encounter (statuses as of 06/16/2023) Medications Medication Sig Dispensed Refills Start Date [...] as of this encounter (statuses as of 06/16/2023) Active Problems Problem Noted Date Diagnosed Date History of nonmelanoma skin cancer 07/09/2022 Overview: Hx of SCC R forearm 2021, SCC L inman 2019, SCCis R lateral lower leg 2019, SCC L dorsal hand x 2(no records) Allergy to influenza vaccine 12/14/2021 Advanced directives, counseling/discussion 09/30 Urge incontinence of urine 10/01/2019 Urinary incontinence without sensory awareness 0 10/01/2019 Prediabetes 09/14/2018 Overview: Per Prediabetes protocol Hyperlipidemia with target LDL less than 100 Primary osteoarthritis of both knees 12/29/2017 HTN, goal below 140/90 History of Guillain-Rozet syndrome documented as of this encounter (statuses as of 06/16/2023) Resolved Problems Problem Noted Date Diagnosed Date Resolved Date Influenza vaccination contraindicated 09/01/2018 06/07/2021 documented as of this encounter (statuses as of 06/16/2023) Immunizations Name Administration Dates Next Due COVID-19 [...] on file documented as of this encounter Plan of Treatment Upcoming Encounters Date Type Department Care Team (Late st Contact Info) Description 06/23/2023 9:45 AM EDT Imaging Radiology [facility] [address] [facility] [address] [place] [address] 07/02/2023 8:20 AM EDT Office Visit General Internal Medicine [facility] [address] [place] [address] Maria Luisa Nunez MD [address] [facility] [place] [address] 07/09/2023 9:40 AM EDT Office Visit Dermatology [facility] [address] [place] [address] Nadya Ramos PA-C [address] [place] [phone] Pending Results Name Type Priority Associated Diagnoses Date /Time COMPREHENSIVE METABOLIC PANEL Lab Routine Hyperlipidemia with target LDL less than 100 HTN, goal below 140/90 06/16/2023 7:48 AM EDT LIPID PANEL WITH DIRECT LDL IF TG IS HIGH Lab Routine Hyperlipidemia with target LDL less than 100 06/16/2023 7:48 AM EDT HEMOGLOBIN A1C Lab Routine Prediabetes 06/16/2023 7:48 AM EDT VITAMIN B12 Lab Routine Vitamin B 12 deficiency 06/16/2023 7:48 AM EDT Scheduled Procedures Name Priority Associated [...] this encounter Medical Devices Implanted Type Area Topography Technician Device Identifier Shelf Expiration Date Model / Serial / Lot Lens Intraoc 18.0 - [id number] - [id number] Implanted:Qty: 1 on 10/23/2021 by Eddie Perla MD at OR [facility] Left: Eye BAUSCH & LOMB 06/04/2026 [id number] / [id number] / [id number] Lens Intraoc 16.5 - [id number] - [id number] Implanted:Qty: 1 on 11/13/2021 by Eddie Perla MD at OR [facility] Right: Eye BAUSCH & LOMB 05/07/2026 [id number] / [id number] / [id number] documented as of this encounter Visit Diagnoses Diagnosis Hyperlipidemia with target LDL less than 100 Other and unspecified hyperlipidemia HTN, goal below 140/90 Unspecified essential hypertension Prediabetes Other abnormal glucose Vitamin B 12 deficiency Other B-complex deficiencies documented in this encounter Advance Directives Latest [...] the patient have Health Care Power of Gold Layer? No Care Teams Wet Process Technician Relationship Specialty Start Date End Date Maria Luisa Nunez MD [address] [place] [id number] PCP - General Internal Medicine 12/29/17 documented as of this encounter
--- OUTSIDE RECORDS SUMMARY | 2023-10-03 07:14 | External Medical Summary | Summary of Care ---
Author Name Unknown Organization [facility] Address [address] [facility] [place] [address] Phone [phone] Care Team Providers Care Early Head Start Teacher Name Role Phone Maria Luisa Nunez MD Primary Care Provider [phone] Reason for Visit * Reason Comments Follow Up Skin check- pt has a lesion on the L. Side of face she would like evaluated Encounter Details Date Type Department Care Team (Late st Contact Info) Description 07/09/2023 9:40 AM EDT Office Visit Dermatology [facility] 200 [facility] [place] [address] Nadya Ramos PA-C 200 [facility] [place] [phone] Skin exam, [...] 12/29/2017 HTN, goal below 140/90 History of Guillain-Chittenden syndrome documented as of this encounter (statuses [...] would like evaluated documented in this encounter Miscellaneous Notes * Addendum Note - Lorena Benito LPN - 07/09/2023 3:48 PM EDTAddended by: LORENA BENITO on: 07/09/2023 03:48 PM Modules accepted: Orders documented in this encounter Plan of Treatment Upcoming Encounters Date Type Department Care Team (Late st Contact Info) Description 01/07/2024 8:20 AM EDT Office Visit General Internal Medicine [facility] [address] [place] [address] Maria Luisa Nunez MD 200 [facility] [place] [address] 08/25/2024 10:40 AM EDT Office Visit Dermatology [facility] [address] [place] [address] Nadya Ramos PA-C 200 [facility] [place] [phone] Pending Results Name Type Priority Associated Diagnoses [...] this encounter Medical Devices Implanted Type Area Commercial Marketing Specialist Device Identifier Shelf Expiration Date Model / Serial / Lot Lens Intraoc 18.0 - [id number] - [id number] Implanted:Qty: 1 on 10/23/2021 by Eddie Perla MD at OR [facility] Left: Eye BAUSCH & LOMB 06/04/2026 [id number] / [id number] / [id number] Lens Intraoc 16.5 - [id number] - [id number] Implanted:Qty: 1 on 11/13/2021 by Eddie Perla MD at OR [facility] Right: Eye BAUSCH & LOMB 05/07/2026 [id number] / [id number] / [id number] documented as of this encounter Visit Diagnoses [...] the patient have Health Care Power of Shovel Engineer? No Care Teams Early Head Start Teacher Relationship Specialty Start Date End Date Maria Luisa Nunez MD 200 [place] [address] PCP - General Internal Medicine 12/29/17 documented as of this encounter
--- OUTSIDE RECORDS SUMMARY | 2023-10-03 07:14 | External Medical Summary | Summary of Care ---
Author Name Unknown Organization [facility] Address [address] [facility] [place] [address] Phone [phone] Care Team Providers Care Editorial Project Manager Name Role Phone Maria Luisa Nunez MD Primary Care Provider [phone] Reason for Visit * Reason Comments eRx-Medication Refill Encounter Details Date Type Department Care Team (Late st Contact Info) Description 07/14/2023 Refill General Internal Medicine [facility] 200 [facility] [place] [address] Maria Luisa Nunez MD 200 [facility] [place] [place] [id number] Hyperlipidemia with target LDL less than 100 Allergies Active Allergy Reactions Criticality Noted Date Comments Influenza Vaccines Neuro complications (Please comment) 03/08/2019 GB syndrome Oxybutynin 03/22/2019 Penicillins Rash 12/29/2017 documented as of this encounter (statuses as of 07/15/2023) Medications Medication Sig Dispensed Refills Start Date [...] 180 days 1 Each 1 07/01/2022 Active hydroCHLOROthiazide 12.5 MG Oral Tablet (Hydrodiuril)Indica [...] EVERY DAY 90 Tablet 3 07/15/2023 Active Atorvastatin Calcium 10 MG Oral Tablet (Lipitor)Indication s:Hyperlipidemia with target LDL less than 100 TAKE 1 TABLET BY MOUTH EVERY DAY 90 Tablet 3 07/16/2022 07/15/19 24 Discontinued documented as of this encounter (statuses as of 07/15/2023) Active Problems Problem Noted Date Diagnosed Date [...] 12/29/2017 HTN, goal below 140/90 History of Guillain-Brethren syndrome documented as of this encounter (statuses as of 07/15/2023) Resolved Problems Problem Noted Date Diagnosed Date Resolved Date Influenza vaccination contraindicated 09/01/2018 06/07/2021 documented as of this encounter (statuses as of 07/15/2023) Immunizations Name Administration Dates Next Due COVID-19 [...] encounter Miscellaneous Notes * Telephone Encounter - Sara Lara [facility] - 07/15/2023 10:29 AM EDTSigned Prescriptions: Disp Refills Atorvastatin Calcium 10 MG Oral Tablet (Li*90 Tab*3 Sig: TAKE 1 TABLET BY MOUTH EVERY DAYAuthorizing Provider: Alysa NUNEZ User: SARA LARA-------- documented in this encounter Plan of Treatment Upcoming Encounters Date Type Department Care Team (Late st Contact Info) Description 01/07/2024 8:20 AM EDT Office Visit General Internal Medicine [facility] 200 [facility] [place] [address] Maria Luisa Nunez MD 200 [facility] [place] [address] 08/25/2024 10:40 AM EDT Office Visit Dermatology [facility] 200 [facility] [place] [address] Nadya Ramos PA-C 200 [facility] [place] [phone] Scheduled Procedures Name Priority Associated Diagnoses Date/Ti [...] this encounter Medical Devices Implanted Type Area Anatomy Teacher Device Identifier Shelf Expiration Date Model / Serial / Lot Lens Intraoc 18.0 - [id number] - [id number] Implanted:Qty: 1 on 10/23/2021 by Eddie Perla MD at [facility] Left: Eye BAUSCH & LOMB 06/04/2026 [id number] / [id number] / [id number] Lens Intraoc 16.5 - [id number] - [id number] Implanted:Qty: 1 on 11/13/2021 by Eddie Perla MD at [facility] Right: Eye BAUSCH & LOMB 05/07/2026 [id number] / [id number] / [id number] documented as of this encounter Visit Diagnoses Diagnosis Hyperlipidemia with target LDL less than 100 Other and unspecified hyperlipidemia documented in this encounter Advance Directives Latest [...] the patient have Health Care Power of Multiple Effect Evaporator Operator? No Care Teams Editorial Project Manager Relationship Specialty Start Date End Date Maria Luisa Nunez MD [address] [place] [address] [place], [place] [address] PCP - General Internal Medicine 12/29/17 documented as of this encounter
--- OUTSIDE RECORDS SUMMARY | 2023-10-03 07:14 | External Medical Summary | Summary of Care ---
Author Name Unknown Organization [facility] Address [address] [facility] [place] [address] Phone [phone] Care Team Providers Care Direct Support Professional Home Health Name Role Phone Maria Luisa Nunez MD Primary Care Provider [phone] Reason for Visit * Reason Comments Follow Up Patient here for a f ew lesions on her lower legs. Encounter Details Date Type Department Care Team (Late st Contact Info) Description 09/25/2023 10:00 AM EDT Office Visit Dermatology [facility] [address] [place] [address] Nadya Ramos PA-C [address] [place] [phone] Skin tumor* Allergies Active Allergy Reactions Criticality Noted Date Comments Influenza Vaccines Neuro complications (Please comment) 03/08/2019 GB syndrome Oxybutynin 03/22/2019 Penicillins Rash 12/29/2017 documented as of this encounter (statuses as of 09/25/2023) Medications Medication Sig Dispensed Refills Start Date [...] as of this encounter (statuses as of 09/25/2023) Active Problems Problem Noted Date Diagnosed Date [...] 12/29/2017 HTN, goal below 140/90 History of Guillain-Denver syndrome documented as of this encounter (statuses as of 09/25/2023) Resolved Problems Problem Noted Date Diagnosed Date Resolved Date Influenza vaccination contraindicated 09/01/2018 06/07/2021 documented as of this encounter (statuses as of 09/25/2023) Immunizations Name Administration Dates Next Due COVID-19 [...] Progress Notes * Nadya Ramos PA-C - 09/25/2023 10:24 [...] EDT Office Visit General Internal Medicine [facility] [place] 200 [facility] [place] [address] Maria Luisa Nunez MD 200 [facility] [place] [address] 08/25/2024 10:40 AM EDT Office Visit Dermatology [facility] [place] 200 [facility] [place] [address] Nadya Ramos PA-C 200 [facility] [place] [phone] Pending Results Name Type Priority Associated Diagnoses [...] this encounter Medical Devices Implanted Type Area Fabric And Accessories Estimator Device Identifier Shelf Expiration Date Model / Serial / Lot Lens Intraoc 18.0 - [id number] - [id number] Implanted:Qty: 1 on 10/23/2021 by Eddie Perla MD at OR [facility] Left: Eye BAUSCH & LOMB 06/04/2026 [id number] / [id number] / [id number] Lens Intraoc 16.5 - [id number] - [id number] Implanted:Qty: 1 on 11/13/2021 by Eddie Perla MD at OR [facility] Right: Eye BAUSCH & LOMB 05/07/2026 [id number] / [id number] / [id number] documented as of this encounter Visit Diagnoses Diagnosis Skin tumor- [...] Power of Attor bekah? No Care Teams Direct Support Professional Home Health Relationship Specialty Start Date End Date Maria Luisa Nunez MD 200 [place] [address] PCP - General Internal Medicine 12/29/17 documented as of this encounter
--- OUTSIDE RECORDS SUMMARY | 2023-10-03 07:14 | External Medical Summary ---
Author Name Unknown Address Unknown Organization K09:[facility] [place] [address] Laboratory Report Ordering Provider Test Date Status JIMMY CHANEY 06/16/2023 07:48:47 Final Observation Date Value Abnormality Reference (Units ) Status BUN 06/16/2023 07:48:47 24 Above high normal 6-20 (mg/dL) Final Creatinine 06/16/2023 07:48:47 1.0 0.5-1.0 (mg/dL) Final Glomerular filtration rate/1.73 sq M.predicted [Volume Rate/Area] in Serum, Plasma or Blood by Creatinine-based formula (CKD-EPI) 06/16/2023 07:48:47 62 >=60 (mL/min) Final eGFR is calculated based on the CKD-EPI 2020 equation SODIUM 06/16/2023 07:48:47 144 135-146 (m mol/L) Final Potassium 06/16/2023 07:48:47 4.5 3.5-5.1 (m mol/L) Final Cl 06/16/2023 07:48:47 108 Above high normal 98 -107 (mmol/L) Final CO2 06/16/2023 07:48:47 26 22-32 (mmo l/L) Final Anion gap 06/16/2023 07:48:47 10 7-15 (mmol /L) Final Glucose 06/16/2023 07:48:47 105 70-120 (mg /dL) Final Albumin 06/16/2023 07:48:47 4.0 3.8-5.0 (g /dL) Final AST (Aspartate aminotransferase) 06/16/2023 07:48:47 17 10-35 (U/L) Fin al Alk Phos 06/16/2023 07:48:47 96 35-130 (U/ L) Final Bilirubin, Total 06/16/2023 07:48:47 0.4 <=1 .2 (mg/dL) Final Calcium 06/16/2023 07:48:47 10.0 8.4-10.2 ( mg/dL) Final Protein 06/16/2023 07:48:47 6.9 6.0-8.3 (g /dL) Final ALT (Alanine aminotransferase) 06/16/2023 07:48:47 18 10-35 (U/L) Addy aguilar Performing Location [facility] [address] [place] [address]
--- OUTSIDE RECORDS SUMMARY | 2023-10-03 07:14 | External Medical Summary | Summary of Care ---
Author Name Unknown Organization [facility] Address [address] [facility] [place] [address] Phone [phone] Care Team Providers Care Casting Supervisor Name Role Phone Maria Luisa Nunez MD Primary Care Provider [phone] Reason for Visit * Reason Onset Date Comments Appointment 10/02/2023 Encounter Details Date Type Department Care Team (Late st Contact Info) Description 10/02/2023 Telephone Dermatology [facility] [place] [address] [place] [address] Nadya Ramos PA-C [address] [place] [address] Appointment Allergies Active Allergy Reactions Criticality Noted Date Comments Influenza Vaccines Neuro complications (Please comment) 03/08/2019 GB syndrome Oxybutynin 03/22/2019 Penicillins Rash 12/29/2017 documented as of this encounter (statuses as of 10/02/2023) Medications Medication Sig Dispensed Refills Start Date [...] as of this encounter (statuses as of 10/02/2023) Active Problems Problem Noted Date Diagnosed Date [...] 12/29/2017 HTN, goal below 140/90 History of Guillain-Russell syndrome documented as of this encounter (statuses as of 10/02/2023) Resolved Problems Problem Noted Date Diagnosed Date Resolved Date Influenza vaccination contraindicated 09/01/2018 06/07/2021 documented as of this encounter (statuses as of 10/02/2023) Immunizations Name Administration Dates Next Due COVID-19 [...] encounter Miscellaneous Notes * Telephone Encounter - Evelin Soni OSA - 10/02/2023 9:17 AM EDT Patient returned call and scheduled excision for October [address] Cole and I added patient to recall list for 6 month appt with Nadya. * Telephone Encounter - Evelin Soni OSA - 10/02/2023 9:01 AM EDT Called patient, left message to return call. * Telephone Encounter - Evelin Soni OSA - 10/02/2023 9:00 AM EDT ----- Message from Nadya Ramos sent at 10/02/2023 8:34 AM EDT ----- Lesion A- please SCHEDULE excision with Dr. Cole or Dr. Nagy Lesion B- monitor Lesion C- monitor Pt called and advised of results If she sees any changes at home to lesion b and c, she will notify us Please SCHEDULE 6 month recheck of lesions on legs A. Skin, L calf, shave: Surface of infundibulocystic squamous proliferation (see comment) Comment: Hematoxylin and eosin stained sections reveal hyperkeratosis overlying an acanthotic epidermis with an endophytic and cystic proliferative pattern of growth. Glassy keratinocyte atypia is noted. The base of the lesion is broadly transected and the lesion shows an architecturally atypical growth pattern. Thus, it could possess dysplastic/invasive potential or represent the surface of, or an evolving form of squamous cell carcinoma. B. Skin, L inman, shave: At least surface of hypertrophic actinic keratosis (see comment) Comment: The lesion extends broadly to the base of the specimen, and an underlying more severe process such as invasive squamous cell carcinoma cannot entirely be ruled out. C. 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 The epidermis is acanthotic with hypergranulosis and glassy keratinocyte changes. The specimen also shows the surface portion of a dilated ostium containing laminated keratin. The histologic findings might be consistent with the surface of a dilated folliculitis or cyst. However, an underlying more severe process cannot entirely be ruled out. Clinical correlation is required. The original and multiple additional hematoxylin and eosin stained sections were examined. documented in this encounter Plan of Treatment Upcoming Encounters Date Type Department Care Team (Late st Contact Info) Description 10/16/2023 1:00 PM EDT Office Visit MOHS Surgery [facility] [address] [place] [address] Letty Cole MD [address] [place] [address] [place] [address] 01/07/2024 8:20 AM EDT Office Visit General Internal Medicine [facility] [address] [place] [address] Maria Luisa Nunez MD [address] [place] [address] [place] [address] 08/25/2024 10:40 AM EDT Office Visit Dermatology [facility] [address] [place] [address] Nadya Ramos PA-C [address] [place] [address] [place] [address] Scheduled Procedures Name Priority Associated Diagnoses Date/Ti [...] this encounter Medical Devices Implanted Type Area [place] Device Identifier Shelf Expiration Date Model / Serial / Lot Lens Intraoc 18.0 - [id number] - [id number] Implanted:Qty: 1 on 10/23/2021 by Eddie Perla MD at OR [facility] Left: Eye BAUSCH & LOMB 06/04/2026 [id number] / [id number] / [id number] Lens Intraoc 16.5 - [id number] - [id number] Implanted:Qty: 1 on 11/13/2021 by Eddie Perla MD at OR [facility] Right: Eye BAUSCH & LOMB 05/07/2026 [id number] / [id number] / [id number] documented as of this encounter Advance Directives * No Code [...] Power of Attor bekah? No Care Teams Casting Supervisor Relationship Specialty Start Date End Date Maria Luisa Nunez MD 200 [place] [address] PCP - General Internal Medicine 12/29/17 documented as of this encounter
--- OUTSIDE RECORDS SUMMARY | 2023-10-03 07:14 | External Medical Summary | Summary of Care ---
Author Name Unknown Organization [facility] Address [address] [facility] [place] [address] Phone [phone] Care Team Providers Care Silk Spooler Name Role Phone Maria Luisa Nunez MD Primary Care Provider Reason for Visit * Reason Comments Follow Up Skin check- pt has a lesion on the L. Side of face she would like evaluated Encounter Details Date Type Department Care Team (Late st Contact Info) Description 07/09/2023 9:40 AM EDT Office Visit D[facility]atology [facility] [place] 200 [facility] [place] [address] Nadya Ramos PA-C 200 [facility] [place] [phone] Skin exam, screening for cancer*; Skin tumor; Family history of melanoma; Scar; Hx of actinic keratosis; Lichenoid actinic keratosis; History of nonmelanoma skin cancer Allergies Active Allergy Reactions Criticality Noted Date Comments Influenza Vaccines Neuro complications (Please comment) 03/08/2019 GB syndrome Oxybutynin 03/22/2019 Penicillins Rash 12/29/2017 documented as of this encounter (statuses as of 07/14/2023) Medications Medication Sig Dispensed Refills Start Date [...] as of this encounter (statuses as of 07/14/2023) Active Problems Problem Noted Date Diagnosed Date [...] 12/29/2017 HTN, goal below 140/90 History of Guillain-Duck syndrome documented as of this encounter (statuses as of 07/14/2023) Resolved Problems Problem Noted Date Diagnosed Date Resolved Date Influenza vaccination contraindicated 09/01/2018 06/07/2021 documented as of this encounter (statuses as of 07/14/2023) Immunizations Name Administration Dates Next Due COVID-19 [...] Progress Notes * Jaxson Nagy MD - 07/14/2023 5:26 AM EDT I have reviewed the charting notes and orders and associated images and agree with the assessment and plan of Nadya Ramos PA-C I was available for consultation during and after the visit Jaxson Nagy MD 07/14/2023 5:26 AM * Nadya Ramos PA-C - 07/09/2023 9:47 [...] in this encounter Nursing Notes * Dione Nails LPN - 07/09/2023 9:29 AM EDT Patient identified by name and date of . Do you have any concerns about pain management for today's visit? No Living Will or Advance Directive for Health Care as noted on problem list. [facility] is a way you can talk to your provider online through e-mail. Would you like to sign up? I can activate it for you? ALREADY ACTIVE Chief Complaint Patient presents with Follow Up Skin check- pt has a lesion on the L. Side of face she would like evaluated documented in this encounter Miscellaneous Notes * Result Encounter Note - Nadya Ramos PA-C - 07/11/2023 12:58 PM EDT MyG sent A. Skin, R upper arm, shave: Verrucoid keratosis, inflamed * Addendum Note - Bertrand Ordonez LPN - 07/09/2023 3:48 PM EDTAddended by: BERTRAND ORDONEZ on: 07/09/2023 03:48 PM Modules accepted: Orders documented in this encounter Plan of Treatment Upcoming Encounters Date Type Department Care Team (Late st Contact Info) Description 01/07/2024 8:20 AM EDT Office Visit General Internal [facility] [place] [facility] [address] Maria Luisa Nunez MD [address] [place] [address] 08/25/2024 10:40 AM EDT Office Visit Dermatology [facility] [place] [address] [place] [address] Nadya Ramos PA-C [address] [place] [...] this encounter Medical Devices Implanted Type Area Shipping Support Device Identifier Shelf Expiration Date Model / Serial / Lot Lens Intraoc 18.0 - [id number] - [id number] Implanted:Qty: 1 on 10/23/2021 by Eddie Perla MD at OR [facility] Left: Eye BAUSCH & LOMB 06/04/2026 [id number] / [id number] / [id number] Lens Intraoc 16.5 - [id number] - [id number] Implanted:Qty: 1 on 11/13/2021 by Eddie Perla MD at OR [facility] Right: Eye BAUSCH & LOMB 05/07/2026 [id number] / [id number] / [id number] documented as of this encounter Procedures Procedure Name Priority Date/Time Associated Diagnosis Comments SURGICAL PATHOLOGY Routine 07/09/2023 10 :05 AM EDT Skin tumor DERM IMAGE (SITE) Routine 07/09/2023 Skin exam, screening for cancer documented in this encounter Results * SURGICAL PATHOLOGY (07/09/2023 10:05 AM EDT) Final Diagnosis A. Skin, R upper arm, shave: Verrucoid keratosis, inflamed 07/10/2023 2:04 PM EDT [facility] Clinical History See Order Comments 07/10/2023 2:04 PM EDT [facility] Order Comments R upper arm- keratotic papules atop thin scaly patch. ISK vs LK, r/o Alem and other NMSC. 07/10/2023 2:04 PM EDT [facility] Gross Description A. Skin. Received in formalin with a container labeled with "Maurizio Loyd Betancourt", "[id number]", "1945" and " right upper arm". Received is a 0.9 x 0.8 cm skin shave. The skin surface rendon-white raised firm and flaky. The underlying tissue is inked. The specimen is trisected and submitted in cassette A1. Gross By: MR 07/10/2023 2:04 PM EDT [facility] Photographic images and diagrams represent larson findings in this case; they are not intended to replace a complete review of the final diagnostic report. The following statement applies to Flow Cytometry, Histology, In situ Hybridization Assays and Molecular Genetics. This test was developed and performed at [facility] and its performance characteristics determined by [facility]. It has not been cleared or approved by the U.S. Food and Drug Administration. The FDA has determined that such clearance or approval is not necessary. This test is used for clinical purposes. It should not be regarded as investigational or for research. Special stains, including histochemical stains, and studies using immunologic and JIE methodology (where applicable) are performed with appropriate positive and negative control reactions. 07/10/2023 2:04 PM EDT [facility] Tissue Skin structure / Unknown 07/09/2023 10:05 AM EDT 07/09/2023 10:05 AM EDT Comment:R upper arm- keratot ic papules atop thin scaly patch. ISK vs LK, r/o Alem and other NMSC. Nadya Ramos PA-C LAB PATHOLOGY [facility] [address] [place] [address] * DERM IMAGE (SITE) (07/09/2023) 07/09/2023 Nadya Ramos PA-C DIGITAL PHOTOGR APHY documented in this encounter Visit Diagnoses Diagnosis Skin exam, [...] the patient have Health Care Power of Bar Waiter/Waitress? No Care Teams Silk Spooler Relationship Specialty Start Date End Date Maria Luisa Nunez MD 200 [place] [address] PCP - General Internal Medicine 12/29/17 documented as of this encounter
--- NOTE | 2023-10-03 07:49 | CT Scan Report ---
CT SCAN OF THE ABDOMEN AND PELVIS WITH IV CONTRAST CLINICAL HISTORY: Generalized abdominal pain. COMPARISON STUDY: Abdominal CT dated 11/01/2020. TECHNIQUE: Following the IV administration of 92 cc of Optiray 320, CT scan of the abdomen and pelvi s is performed from the lung bases to the proximal femora. Images are reviewed in the axial, sagittal , and coronal planes. IV contrast was administered without complication. A dose lowering technique wa s utilized adhering to the principles of ALARA. CT DOSE: 1366.67 mGy.cm FINDINGS: Lung bases: The heart is normal in size and without pericardial effusion. There are coronary artery c alcifications. The lung bases are clear noting dependent atelectasis. There is a small hiatal hernia. Liver: The contrast-enhanced liver is normal in size, contour, and attenuation. There is no intrahepa tic biliary ductal dilatation. The hepatic veins and portal veins are patent. Gallbladder: Unremarkable. Spleen: Normal in size and attenuation. Pancreas: Unremarkable. Adrenal glands: An 11 mm right adrenal adenoma is unchanged. The left adrenal gland is normal in appe arance. Kidneys: The contrast enhanced kidneys are normal in size and without hydronephrosis. The kidneys enh ance symmetrically. Scattered subcentimeter cortical hypodensities likely represent cysts but are too small for definitive characterization. Abdominal vasculature: The abdominal aorta is normal in course and caliber. Bowel: There are distended and fluid-filled loops of small bowel in the pelvis which measure up to 3. 5 cm in diameter. A transition point is suggested in the lower mid abdomen on image #171. This is con sistent with a small bowel obstruction. No focally thick-walled loops identified and there is no pneu matosis intestinalis or portal venous gas. There is also infiltration identified around loops of rela tively decompressed proximal small bowel in the left upper quadrant. There is mild colonic diverticul osis without CT evidence of acute diverticulitis. The appendix is well-visualized and normal. Peritoneum: There is no intraperitoneal free air or abdominal ascites. Lymphadenopathy: None. Pelvic viscera: The bladder wall appears thickened. A 14 mm diverticulum is seen at the bladder dome. The uterus and adnexa are normal as visualized. There are bilateral fat-containing groin hernias. Th ere is trace free fluid in the pelvis. Skeletal structures: The skeletal structures are osteopenic. There is mild lumbosacral spondylosis. N o lytic or blastic lesions are seen. IMPRESSION: 1. Findings are consistent with a small bowel obstruction. A transition point is suggested in the low er midabdomen, and this is likely on the basis of adhesions. 2. There is also mild infiltration around loops of small bowel in the left upper quadrant. Correlate clinically. 3. There is trace free fluid in the pelvis. 4. No intraperitoneal free air is identified. No focally thick-walled bowel loops are identified and there is no pneumatosis intestinalis or portal venous gas. 5. Colonic diverticulosis without CT evidence of acute diverticulitis. 6. Additional findings as above. ACT 112: Negative or not required by law. Electronically signed by: Moy Bryant M.D. 10/03/2023 7:47 AM
--- NOTE | 2023-10-03 07:50 | Emergency Department Note ---
ED Visit Note Patient signed out to me by Dr. Oshea at 7:50 AM. Patient was pending read of the CT abdomen/pelvis. MDM: - CT abdomen/pelvis with IV contrast showed small bowel obstruction with a transition point in the lower mid abdomen. - Discussed case with Ellen Kim PA-C with general surgery. Will see in hospital as consult - Discussed case with [facility] for admission. - Patient to be admitted to [facility] inpatient service for further evaluation and management. .
--- NOTE | 2023-10-03 08:16 | History & Physical Report ---
Date of Service October 03, 2023 Assessment & Plan (1) SBO (small bowel obstruction): (2) Abdominal pain: (3) Nausea and vomiting: Plan Maurizio Betancourt is a 78y/o F with PMHx of hyperlipidemia, prediabetes, HTN, urinary incontinence, osteoarthritis, history of Guillain-Brush syndrome, history of nonmelanoma skin cancer and other problems listed below who presented to the ED for evaluation of abdominal pain with associated nausea/vomiting and was found to have a small bowel obstruction. Small Bowel Obstruction (SBO) Admitting Imaging: * Chest/Abdomen XR --> "No free air. A single loop of mildly dilated small bowel. A partial small bowel obstruction cannot be excluded. No acute cardiopulmonary findings." * CTAP --> "Findings are consistent with a small bowel obstruction. A transition point is suggested in the lower midabdomen, and this is likely on the basis of adhesions. There is also mild infiltration around loops of small bowel in the left upper quadrant. There is trace free fluid in the pelvis. No i ntraperitoneal free air is identified. No focally thick-walled bowel loops are identified and there is no pneumatosis intestinalis or portal venous gas. Colonic diverticulosis without CT evidence of acute diverticulitis." -WBC elevated at 13.96 -Lactate w/in normal limits -No fevers or electrolyte abnormalities -Routine Gen Surg consult placed -Bowel rest, keep pt NPO for now -Pt received 1L NSS in the ED -Will continue IVF w/ LR's @ 80cc/hr -CBC, BMP and Mag in AM Abdominal Pain Nausea & Vomiting -Pt received 1 dose of IV Zofran in ED -Pt also given 1 dose of IV Dilaudid in ED -PRN IV Zofran, pain control regimen in place ? Possible Urinary Tract Infection -Pt not c/o any urinary symptoms -Hx of urinary incontinence -Wears incontinence pads at baseline -UA positive for urine bacteria, nitrites -WBC elevated at 13.96 -Will cover w/ IV cefepime Hypertension (HTN) -BP slightly elevated at 189/81 on admission -Will hold BRUSH FINISHER po BP medications for now -PRN IV Enalapril ordered for SBP>180 or DBP>100 Hyperlipidemia: Holding BRUSH FINISHER statin therapy for now Prediabetes: Glucose 155 on admission, Hgb A1c pending DVT Prophylaxis: SQ Heparin Code Status: DNR/DNI - As per discussion w/ pt in the ED. PCP: Maria Luisa Nunez MD Dispo: Admit to Med/Surg Patient seen in collaboration with Dr. Plasencia. Please see addendum. I spent a total of 75 minutes coordinating, documenting, and providing care for this patient excluding time spent in the performance of separately billed services. This included personally reviewing all current laboratories and imagi ng studies, medical reconciliation, outpatient chart review and discussion with specialists. This chart was completed in part utilizing Speech Voice Recognition Software. Grammatical errors, random word insertions, pronoun errors, and incomplete sentences are an occasional consequence of this system due to software limitations, ambient noise, and hardware issues. Any formal questions or concerns about the content, text, or information contained within the body of this dictation should be directly addressed to the provider for clarification. History of Present Illness Chief Complaint: Abdominal Pain, N/V Primary Care Provider: Maria Luisa Nunez MD Maurizio Betancourt is a 78y/o F with PMHx of hyperlipidemia, prediabetes, HTN, urinary incontinence, osteoarthritis, history of Guillain-Brush syndrome, history of nonmelanoma skin cancer and other problems listed below who presented to the ED for evaluation of abdominal pain with associated nausea/vomiting. History obtained from patient and associated chart review. Patient states that her abdominal pain started yesterday around 11 AM. Mentions that the pain is occurring in her upper and lower abdominal regions. Reports 9/10 pain in her upper abdomen and 6/10 pain in her lower abdomen at its worst. States the pain in her upper abdomen has "taken her breath away" a couple of times. She received a dose of IV Dilaudid in the ED, which she states worked well to control her pain. She was nauseous on arrival to the ED and had an episode of vomiting; received 1 dose of IV Zofran. Not currently complaining of nausea. Last bowel movement was yesterday in the manager transit. Patient has been able to pass gas. She is complaining of bloating in her upper abdominal region. She was taking some Tums and Pepcid at home without any relief. Denies ever taking any [id number] pain medications. Further denies any blood in her stool, blood in her vomit or urinary issues. Patient has urinary incontinence at baseline, wears incontinence pads on a daily basis. Not currently taking any medications for her urinary incontinence. She lives at home with her and does not use any assistive devices for ambulation at baseline. 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 Denies any recent falls, lightheadedness or dizziness at this time. Dr. Avendaño in the ED spoke with general surgery [Ellen Kim PA-C]; they will be down to evaluate the patient in the ED. Allergies Allergy/AdvReac Type Severity Reaction Status Date / Time Influenza Virus Vaccines Allergy Severe Guillain-[place] Verified 10/03/23 09:23 Syndrome oxybutynin Allergy Intermediate Fatigued Unverified 10/03/23 10:01 Penicillins AdvReac Unknown Rash Verified 10/03/23 09:23 Home Medications Medication Instructions Recorded Confirmed Type amlodipine 5 mg tablet 5 mg PO DAILY 08/14/21 10/03/23 History atorvastatin 10 mg tablet 10 mg PO DAILY 08/14/21 10/03/23 History cholecalciferol (vitamin D3) 25 25 mcg PO DAILY 08/14/21 10/03/23 History mcg (1,000 unit) capsule hydrochlorothiazide 12.5 mg capsule 12.5 mg PO DAILY 08/14/21 10/03/23 History valsartan 320 mg tablet 320 mg PO DAILY 08/14/21 10/03/23 History Past Med/Surg History Problem List Nausea and vomiting SBO (small bowel obstruction) (Acute) Abdominal pain (Acute) HTN (hypertension) Urge incontinence of urine Prediabetes Hyperlipidemia with target LDL less than 100 HTN, goal below 140/90 Medical History Hx of bronchitis Urinary incontinence without sensory awareness Impaired fasting glucose SCC (squamous cell carcinoma) Primary osteoarthritis of both knees Arthritis Guillain-[place] syndrome Occurred after receiving flu vaccination. Surgical History H/O bladder repair surgery Hx of urinary sling procedure per patient. H/O tubal ligation Family History Mother Stroke Father FH: CABG (coronary artery bypass surgery) Chronic heart failure Sister Heart disease Coronary heart disease Social History Smoking Status: Former smoker Second Hand Exposure: No; Do You Dip or Chew Tobacco: No; Tobacco Cessation Education Requested by Patient: No Hx Alcohol Use: No Hx Substance Use: No Preferred Language: Tanzanian Communication Ability: Effective Electronic Engraver Required: No Beliefs That Will Affect Care: None marital status: Current Living Situation: Spouse current occupational status: retired Other Information That Helps Us Care for You: No Feels Safe at Home: Yes Assistive Devices: None Review of Systems Review of Systems: At least ten systems reviewed and negative, except as noted in the HPI. Physical Exam Physical Exam: General: WD/WN, vitals as above, NAD, sitting up in bed, pleasant, conversing appropriately. A+Ox3, euthymic affect. HEENT: Normocephalic, atraumatic.Normal inspection, PERRL, conjunctivae normal, anicteric sclerae. External ear and nose normal, oropharynx normal. Respiratory: Normal respiratory effort, lungs clear to auscultation, no wheeze, rales, rhonchi. No accessory muscle use. Cardiovascular: Regular rate, rhythm, no murmur, normal peripheral pulses, no BLE edema. Vessels: No JVD. Abdomen/GI: Good bowel sounds, tender to palpation in upper and lower abdominal regions. Extremities/Musculoskeletal: No cyanosis or clubbing, extremities motor strength intact, moves all extremities. Neurologic: EOMI, accommodation nl, no face palsy, no dysarthria, CN's II-XI not formally tested but appear intact bilaterally. Skin: No rashes, normal color, warm/dry. Results & Data Results & Data Vital Signs (Past 12 Hours) Vital Signs Temp Pulse Pulse Resp BP BP Pulse Ox 10/03/23 06:33 63 20 96 10/03/23 06:30 189/81 H 10/03/23 06:27 61 14 98 10/03/23 06:03 65 17 95 10/03/23 06:00 191/85 H 10/03/23 06:00 64 16 189/81 H 97 10/03/23 05:45 66 11 L 97 10/03/23 05:36 65 17 95 10/03/23 05:30 179/87 H 10/03/23 05:30 179/87 H 10/03/23 05:30 179/87 H 10/03/23 05:12 70 11 L 94 10/03/23 04:57 67 10/03/23 04:32 70 16 97 10/03/23 04:31 69 16 164/80 H 97 10/03/23 03:58 37 C 74 20 159/80 H 98 O2 Del Method 10/03/23 06:33 10/03/23 06:30 10/03/23 06:27 10/03/23 06:03 10/03/23 06:00 10/03/23 06:00 Room Air 10/03/23 05:45 10/03/23 05:36 10/03/23 05:30 10/03/23 05:30 10/03/23 05:30 10/03/23 05:12 10/03/23 04:57 10/03/23 04:32 Room Air 10/03/23 04:31 Room Air 10/03/23 03:58 Room Air Laboratory Results Short CBC 10/03/23 Range/Units 04:18 WBC 13.96 H (4.8-10.8) K/ul Hgb 13.7 (12.0-16.0) g/dl Hct 40.4 (37.0-47.0) % Plt Count 169 (130-400) K/uL BMP 10/03/23 04:18 Sodium 137 Potassium 3.9 Chloride 103 Carbon Dioxide 23 BUN 25 H Creatinine 0.79 Glucose 155 H Calcium 10.2 Liver Function 10/03/23 Range/Units 04:18 Total Bilirubin 0.7 (0.2-1.0) mg/dl AST 17 (13-39) U/L ALT 15 (7-52) U/L Alkaline Phosphatase 87 (34-104) U/L Albumin 4.4 (3.4-5.0) gm/dl Diagnostic Findings Chest/Abdomen X-ray 10/03/23 04:20 PA CHEST RADIOGRAPH AND UPRIGHT AND SUPINE AP RADIOGRAPHS OF THE ABDOMEN CLINICAL HISTORY: Epigastric pain. COMPARISON STUDY: CT of the abdomen and pelvis November 01, 2020. FINDINGS: Lungs are clear. There is no pneumothorax or pleural effusion. Pul monary vascularity is normal. Cardiomediastinal silhouette is normal. There is no evidence for free air. A loop of mildly dilated small bowel measures 3.6 cm in caliber. IMPRESSION: 1. No free air. A single loop of mildly dilated small bowel. A partial small bowel obstruction cannot be excluded. 2. No acute cardiopulmonary findings. ACT 112: Negative or not required by law. Electronically signed by: Jose Martin Pearl M.D. 10/03/2023 7:09 AM Abdomen/Pelvis CT 10/03/23 05:07 CT SCAN OF THE ABDOMEN AND PELVIS WITH IV CONTRAST CLINICAL HISTORY: Generalized abdominal pain. COMPARISON STUDY: Abdominal CT dated 11/01/2020. TECHNIQUE: Following the IV administration of 92 cc of Optiray 320, CT scan of the abdomen and pelvis is performed from the lung bases to the proximal femora. Images are reviewed in the axial, sagittal, and coronal planes. IV contrast was administered without complication. A dose lowering technique was utilized ad robert to the principles of ALARA. CT DOSE: 1366.67 mGy.cm FINDINGS: Lung bases: The heart is normal in size and without pericardial effusion. There are coronary artery calcifications. The lung bases are clear noting dependent atelectasis. There is a small hiatal hernia. Liver: The contrast-enhanced liver is normal in size, contour, and attenuation. There is no intrahepatic biliary ductal dilatation. The hepatic veins and portal veins are patent. Gallbladder: Unremarkable. Spleen: Normal in size and attenuation. Pancreas: Unremarkable. Adrenal glands: An 11 mm right adrenal adenoma is unchanged. The left adrenal gland is normal in appearance. Kidneys: The contrast enhanced kidneys are normal in size and without hydronephrosis. The kidneys enhance symmetrically. Scattered subcentimeter cortical hypodensities likely represent cysts but are too small for definitive characterization. Abdominal vasculature: The abdominal aorta is normal in course and caliber. Bowel: There are distended and fluid-filled loops of small bowel in the pelvis which measure up to 3.5 cm in diameter. A transition point is suggested in the lower mid abdomen on image #171. This is consistent with a small bowel obstruction. No focally thick-walled loops identified and there is no pneumatosis intestinalis or portal venous gas. There is also infiltration identified around loops of relatively decompressed proximal small bowel in the left upper quadrant. There is mild colonic diverticulosis without CT evidence of acute diverticulitis. The appendix is well-visualized and normal. Peritoneum: There is no intraperitoneal free air or abdominal ascites. Lymphadenopathy: None. Pelvic viscera: The bladder wall appears thickened. A 14 mm diverticulum is seen at the bladder dome. The uterus and adnexa are normal as visualized. There are bilateral fat-containing groin hernias. There is trace free fluid in the pelvis. Skeletal structures: The skeletal structures are osteopenic. There is mild lumbosacral spondylosis. No lytic or blastic lesions are seen. IMPRESSION: 1. Findings are consistent with a small bowel obstruction. A transition point is suggested in the lower midabdomen, and this is likely on the basis of adhesions. 2. There is also mild infiltration around loops of small bowel in the left upper quadrant. Correlate clinically. 3. There is trace free fluid in the pelvis. 4. No intraperitoneal free air is identified. No focally thick-walled bowel loops are identified and there is no pneumatosis intestinalis or portal venous gas. 5. Colonic diverticulosis without CT evidence of acute diverticulitis. 6. Additional findings as above. ACT 112: Negative or not required by law. Electronically signed by: Moy Bryant M.D. 10/03/2023 7:47 AM Medications Administered Discontinued Medications Hydromorphone HCl (Hydromorphone Inj 0.5 Mg/0.5 Ml Syr) 0.5 mg IV NOW STA Stop: 10/03/23 04:20 Last Admin: 10/03/23 04:26 Dose: 0.5 mg Documented By: SYED Sodium Chloride (Nss) 1,000 mls @ 999 mls/hr IV .Q1H1M STA Stop: 10/03/23 05:19 Last Infusion: 10/03/23 05:56 Dose: Infused Documented By: Admin: 10/03/23 04:26 Dose: 999 mls/hr Documented By: SYED Ioversol (Optiray 320 100ml) 100 ml IV ONCE ONE Stop: 10/03/23 05:24 Last Admin: 10/03/23 05:24 Dose: 92 ml Documented By: AMALIA Ondansetron HCl (Ondansetron Inj 2 Mg/Ml 2 Ml Vial) 4 mg IV NOW STA Stop: 10/03/23 04:20 Last Admin: 10/03/23 04:26 Dose: 4 mg Documented By: SYED Code Status & VTE Plan Code Status DNR/DNI - No Resuscitation VTE Prophylaxis Plan VTE Prophylaxis will be ordered: Yes Supervising Physician Co-Signing Physician Notes Patient is a 78-year-old female with history of Guillain-Brush syndrome, hyperlipidemia and other medical problems presents with history of abdominal pain associate with nausea, vomiting. Please review HPI for complete details of presentation. Patient reports having history of bladder repair surgery and tubal ligation in the past. Blood work suggestive of leukocytosis 13 K, glucose 155, A1c 6.3 but otherwise within normal limits. Urinalysis suggestive of possible UTI. CT abdomen showed findings suggestive of small bowel obstruction. Nausea, vomiting resolved while in ED. Physical Exam: Vitals signs as noted above General Appearance:Obese, no apparent distress Head: normocephalic, Atraumatic Eyes: normal inspection, EOMI Neck: supple, Trachea midline Respiratory/Chest: Normal breath sounds, CTA, No accessory muscle use Cardiovascular: S1, S2, No murmur Abdomen/GI:Soft, Epigastric tender, no audible Bowel sounds Extremities/Musculoskeletal:normal inspection, 1+ edema Neurologic/Psych:AAOX3, grossly no focal neurological deficits Skin: normal color, warm Small bowel obstruction Suspected UTI Prediabetes HTN Continue IV fluids, bowel rest, pain control Appreciate surgery input Empirically started on IV cefepime Will consider placing NG tube if patient continues to have nausea, vomiting IV Vasotec while p.o. antihypertensives on hold I personally interviewed and examined at bedside. Patient's care is coordinated with Kady Sawyer PA-C . I have reviewed the advanced practitioner's documentation, and I agree with plan of care. Please refer to the documentation above for details of patient's presentation and for discussion of other issues. I spent a total of 35minutes coordinating, documenting, and providing care for this patient excluding time spent in the performance of separately billed services. (2) Abdominal pain Abdominal location: unspecified location Qualified Code(s): R10.9 - Unspecified abdominal pain (3) Nausea and vomiting Vomiting type: unspecified Qualified Code(s): R11.2 - Nausea with vomiting, unspecified
[2023-10-03 08:50] LABS: Appearance Urine Clear (Clear); Bacteria Urine Automated 4+ (None Seen); Bilirubin Urine Negative (Negative); Blood Urine Trace (Negative); Cast Urine Automated 0-2 /lpf (0-2); Color Urine Yellow; Epithelial Cell Urine Auto 0-2 /hpf (0-2); Glucose Urine UA Negative (Negative); Ketones Urine Negative (Negative); Leukocyte Esterase Urine Negative (Negative); Nitrite Urine Positive (Negative); Protein Urine Negative (Negative); RBC Urine Automated 0-2 /hpf (0-2); Specific Gravity Urine > 1.045 (1.000-1.030); Urobilinogen Urine Negative (Negative); WBC Urine Automated 0-5 /hpf (0-5); pH Urine 5.5 (4.5-7.5)
--- NOTE | 2023-10-03 09:37 | Surgery Consultation ---
Date of Consultation October 03, 2023 Assessment & Plan (1) SBO (small bowel obstruction): (2) Nausea and vomiting: (3) Abdominal pain: 78 yo female with history of tubal ligation and bladder sling presented to ED with 1 day history of upper abdominal pain, nausea and vomiting. CT scan with SBO in low mid abdomen, no pneumatosis, lactate normal. Exam with soft but tender upper abdomen, no distention, no peritonitis. Plan: Discussed with patient imaging and laboratory findings consistent with SBO, likey secondary to adhesions, and partial obstruction with no evidence of bowel ischemia given no pneumatosis and abdomen is soft with mild tenderness in upper abdomen and no signs of peritonitis. Discussed conservative management initially with IV fluids, bowel rest, and pain management and antiemetics as needed If vomiting reoccurs and persists would recommend NGT for decompression Encouraged ambulating hallway to increase GI motility Continue medical management Discussed with Dr. duran who agrees with above and evaluate patient independently. Supervising Physician Co-Signing Physician Notes I have seen and examined the patient personally and agree with the above assessment and plan. Of note, she has a prior surgical history and complaints of abdominal pain. She did have nausea and vomiting. She has begun to pass flatus. On exam her upper abdomen is tender to palpation; there are no peritoneal signs. We will plan for conservative management with IV fluids, bowel rest, pain management and antiemetics. We will continue to follow and await return of bowel function. History of Present Illness Reason for Consultation: SBO Requesting Physician: Sara Avendaño MD Attending Physician: MD Erinn History of Present Illness Maurizio is a 78 yo female with history of HTN, urine incontinence, hyperlipidemia who presented to ED with abdominal pain, nausea, and vomiting that started yesterday morning. State she initially had feeling of gas and then pain started in upper mid abdomen and then progressively worsened throughout day and started having vomiting. Has vomited 5 times. No fever, chills, chest pain , shortness of breath. States she has had a tubal ligation about 40 years ago and bladder sling operation 15-20 years ago. No other abdominal surgeries. Last bowel movement was yesterday morning. Has had some thin stools and small pellets off and on in the last 1.5 years however has had constipation and required Miralax at times. Last colonoscopy about 6 years ago. No blood in stools. No unintentional weight loss. No family history of colon cancer. Er work-up included labs which showed leukocytosis of 13k, lactate normal. CT scan of abdomen and pelvis with dilated SB loops up to 3.5 cm with transition point in lower mid abdomen consistent with SBO. No pneumatosis or pneumoperitoneum Currently states pain is 8/10 , was 10/10 upon presenting to ED. Nausea resolved. Vomiting controlled. Passed a little gas here in ED. Pain comes in spasms. Feels slightly bloated in upper mid abdomen. Allergies Allergy/AdvReac Type Severity Reaction Status Date / Time Influenza Virus Vaccines Allergy Severe Guillain-[place] Verified 10/03/23 09:23 Syndrome oxybutynin Allergy Intermediate Fatigued Unverified 10/03/23 10:01 Penicillins AdvReac Unknown Rash Verified 10/03/23 09:23 Home Medications Medication Instructions Recorded Confirmed Type amlodipine 5 mg tablet 5 mg PO DAILY 08/14/21 10/03/23 History atorvastatin 10 mg tablet 10 mg PO DAILY 08/14/21 10/03/23 History cholecalciferol (vitamin D3) 25 25 mcg PO DAILY 08/14/21 10/03/23 History mcg (1,000 unit) capsule hydrochlorothiazide 12.5 mg capsule 12.5 mg PO DAILY 08/14/21 10/03/23 History valsartan 320 mg tablet 320 mg PO DAILY 08/14/21 10/03/23 History Patient History Medical History Hx of bronchitis Urinary incontinence without sensory awareness Impaired fasting glucose SCC (squamous cell carcinoma) Primary osteoarthritis of both knees Arthritis 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 Surgical History H/O bladder repair surgery Hx of urinary sling procedure per patient. H/O tubal ligation Family History Mother Stroke Father FH: CABG (coronary artery bypass surgery) Chronic heart failure Sister Heart disease Coronary heart disease Social History Smoking Status: Former smoker Second Hand Exposure: No; Do You Dip or Chew Tobacco: No; Tobacco Cessation Education Requested by Patient: No Hx Alcohol Use: No Hx Substance Use: No Preferred Language: [place] Communication Ability: Effective [employer] Arc Required: No Beliefs That Will Affect Care: None marital status: Current Living Situation: Spouse current occupational status: retired Other Information That Helps Us Care for You: No Feels Safe at Home: Yes Assistive Devices: None Review of Systems Review of Systems: All systems reviewed & are unremarkable except as noted in HPI & below Physical Exam Constitutional: WD/WN, vitals as above + obese, cooperative and comfortable; no acute distress and not ill appearing Respiratory: normal respiratory effort, lungs clear to auscultation Cardiovascular: RRR, no murmur, no edema Gastrointestinal (Abdomen): Inspection/Auscultation: abdomen normal to inspection and + abdominal surgical scar (midline laparotomy scar inferior to umbilicus); abdomen not distended Percussion/Palpation: + abdomen tender (upper abdomen) and abdomen soft; no guarding, abdomen not rigid and abdomen not firm Skin: no rashes, warm and dry Psychiatric: A+Ox3, euthymic affect Results & Data Vital Signs (Past 12 Hours) Vital Signs Temp Pulse Pulse Resp BP BP Pulse Ox 10/03/23 08:58 71 10/03/23 06:33 63 20 96 10/03/23 06:30 189/81 H 10/03/23 06:27 61 14 98 10/03/23 06:03 65 17 95 10/03/23 06:00 191/85 H 10/03/23 06:00 64 16 189/81 H 97 10/03/23 05:45 66 11 L 97 10/03/23 05:36 65 17 95 10/03/23 05:30 179/87 H 10/03/23 05:30 179/87 H 10/03/23 05:30 179/87 H 10/03/23 05:12 70 11 L 94 10/03/23 04:57 67 10/03/23 04:32 70 16 97 10/03/23 04:31 69 16 164/80 H 97 10/03/23 03:58 37 C 74 20 159/80 H 98 O2 Del Method 10/03/23 08:58 10/03/23 06:33 10/03/23 06:30 10/03/23 06:27 10/03/23 06:03 10/03/23 06:00 10/03/23 06:00 Room Air 10/03/23 05:45 10/03/23 05:36 10/03/23 05:30 10/03/23 05:30 10/03/23 05:30 10/03/23 05:12 10/03/23 04:57 10/03/23 04:32 Room Air 10/03/23 04:31 Room Air 10/03/23 03:58 Room Air Laboratory Results 10/03/23 10/03/23 10/03/23 Range/Units 08:37 08:00 04:18 WBC 13.96 H (4.8-10.8) K/ul RBC 4.48 (4.20-5.40) M/uL Hgb 13.7 (12.0-16.0) g/dl Hct 40.4 (37.0-47.0) % MCV 90.2 (80.0-100.0) fL MCH 30.6 (25.0-34.0) pg MCHC 33.9 (32.0-36.0) g/dL RDW Std Deviation 44.1 (36.4-46.3) fL RDW Coeff of Marciano 13.3 (11.5-14.5) % Plt Count 169 (130-400) K/uL MPV 10.2 (9.4-12.4) fL Immature Gran % (Auto) 0.4 % Neut % (Auto) 80.1 % Lymph % (Auto) 13.6 % Adams % (Auto) 5.4 % Eos % (Auto) 0.2 % Baso % (Auto) 0.3 % Neut # (Auto) 11.18 H (1.40-6.50) K/uL Lymph # (Auto) 1.90 (1.20-3.40) K/uL Adams # (Auto) 0.76 H (0.11-0.59) K/uL Eos # (Auto) 0.03 (0.00-0.50) K/uL Baso # (Auto) 0.04 (0.00-0.20) K/uL Immature Gran # (Auto) 0.05 (0.01-0.20) K/uL Sodium 137 (136-145) mmol/L Potassium 3.9 (3.5-5.1) mmol/L Chloride 103 (98-107) mmol/L Carbon Dioxide 23 (21-32) mmol/L Anion Gap 11 (3-11) BUN 25 H (6-23) mg/dl Creatinine 0.79 (0.6-1.2) mg/dl Est Cr Clr Drug Dosing 76.1 ml/min Est GFR ( Amer) 84.3 ml/min Est GFR (Non-Af Amer) 72.7 ml/min BUN/Creatinine Ratio 31.6 H (10-20) Glucose 155 H (70-99(Fasting)) mg/dl Estimat Average Glucose Pending Hemoglobin A1c Pending Lactate 1.3 (0.4-2.0) mmol/L Calcium 10.2 (8.6-10.3) mg/dl Total Bilirubin 0.7 (0.2-1.0) mg/dl AST 17 (13-39) U/L ALT 15 (7-52) U/L Alkaline Phosphatase 87 (34-104) U/L Total Protein 8.0 (6.0-8.3) gm/dl Albumin 4.4 (3.4-5.0) gm/dl Globulin 3.6 (2.5-4.0) gm/dl Albumin/Globulin Ratio 1.2 (0.9-2) Lipase 13 (11-82) U/L Urine Color Yellow Urine Appearance Clear (Clear) Urine pH 5.5 (4.5-7.5) Ur Specific [place] > 1.045 H (1.000-1.030) Urine Protein Negative (Negative) Urine Glucose (UA) Negative (Negative) Urine Ketones Negative (Negative) Urine Blood Trace H (Negative) Urine Nitrite Positive A (Negative) Urine Bilirubin Negative (Negative) Urine Urobilinogen Negative (Negative) Ur Leukocyte Esterase Negative (Negative) Urine WBC (Auto) 0-5 (0-5) /hpf Urine RBC (Auto) 0-2 (0-2) /hpf U Hyaline Cast (Auto) 0-2 (0-2) /lpf U Epithel Cells (Auto) 0-2 (0-2) /hpf Urine Bacteria (Auto) 4+ H (None Seen) Diagnostic Findings CT SCAN OF THE ABDOMEN AND PELVIS WITH IV CONTRAST CLINICAL HISTORY: Generalized abdominal pain. COMPARISON STUDY: Abdominal CT dated 11/01/2020. TECHNIQUE: Following the IV administration of 92 cc of Optiray 320, CT scan of the abdomen and pelvis is performed from the lung bases to the proximal femora. Images are reviewed in the axial, sagittal, and coronal planes. IV contrast was administered without complication. A dose lowering technique was utilized adhering to the principles of ALARA. CT DOSE: 1366.67 mGy.cm FINDINGS: Lung bases: The heart is normal in size and without pericardial effusion. There are coronary artery calcifications. The lung bases are clear noting dependent at electasis. There is a small hiatal hernia. Liver: The contrast-enhanced liver is normal in size, contour, and attenuation. There is no intrahepatic biliary ductal dilatation. The hepatic veins and portal veins are patent. Gallbladder: Unremarkable. Spleen: Normal in size and attenuation. Pancreas: Unremarkable. Adrenal glands: An 11 mm right adrenal adenoma is unchanged. The left adrenal gland is normal in appearance. Kidneys: The contrast enhanced kidneys are normal in size and without hydronephrosis. The kidneys enhance symmetrically. Scattered subcentimeter cortical hypodensities likely represent cysts but are too small for definitive characterization. Abdominal vasculature: The abdominal aorta is normal in course and caliber. Bowel: There are distended and fluid-filled loops of small bowel in the pelvis which measure up to 3.5 cm in diameter. A transition point is suggested in the lower mid abdomen on image #171. This is consistent with a small bowel obstruction. No focally thick-walled loops identified and there is no pneumatosis intestinalis or portal venous gas. There is also infiltration identified around loops of relatively decompressed proximal small bowel in the left upper quadrant. There is mild colonic diverticulosis without CT evidence of acute diverticulitis. The appendix is well-visualized and normal. Peritoneum: There is no intraperitoneal free air or abdominal ascites. Lymphadenopathy: None. Pelvic viscera: The bladder wall appears thickened. A 14 mm diverticulum is seen at the bladder dome. The uterus and adnexa are normal as visualized. There are bilateral fat-containing groin hernias. There is trace free fluid in the pelvis. Skeletal structures: The skeletal structures are osteopenic. There is mild lumbosacral spondylosis. No lytic or blastic lesions are seen. IMPRESSION: 1. Findings are consistent with a small bowel obstruction. A transition point is suggested in the lower midabdomen, and this is likely on the basis of adhesions. 2. There is also mild infiltration around loops of small bowel in the left upper quadrant. Correlate clinically. 3. There is trace free fluid in the pelvis. 4. No intraperitoneal free air is identified. No focally thick-walled bowel loops are identified and there is no pneumatosis intestinalis or portal venous gas. 5. Colonic diverticulosis without CT evidence of acute diverticulitis. 6. Additional findings as above. PA CHEST RADIOGRAPH AND UPRIGHT AND SUPINE AP RADIOGRAPHS OF THE ABDOMEN CLINICAL HISTORY: Epigastric pain. COMPARISON STUDY: CT of the abdomen and pelvis November 01, 2020. FINDINGS: Lungs are clear. There is no pneumothorax or pleural effusion. Pulmonary vascularity is normal. Cardiomediastinal silhouette is normal. There is no evidence for free air. A loop of mildly dilated small bowel measures 3.6 cm in caliber. IMPRESSION: 1. No free air. A single loop of mildly dilated small bowel. A partial small bowel obstruction cannot be excluded. 2. No acute cardiopulmonary findings. I Personally reviewed imaging studies above and concur with above findings. (2) Nausea and vomiting Vomiting type: unspecified Qualified Code(s): R11.2 - Nausea with vomiting, unspecified (3) Abdominal pain Abdominal location: unspecified location Qualified Code(s): R10.9 - Unspecif ied abdominal pain
[2023-10-03] MEDS ORDERED: POLYETHYLENE (MIRALAX) 17 GM PACK PO PRN (09:59)
[2023-10-03] MEDS ORDERED: MoRPHine SULFATE 2 MG/ML CARP IV PRN (09:59)
[2023-10-03] MEDS ORDERED: ENALAPRILAT 0.625 MG in SYRINGE 9.5 ML IV PRN (09:59)
[2023-10-03] MEDS ORDERED: MAGNESIUM HYDROXIDE SUSP 30 ML UDC PO PRN (09:59)
[2023-10-03] MEDS ORDERED: ALUMINUM/MAGNESIUM SUSP 30 ML UDC PO PRN (09:59)
[2023-10-03] MEDS ORDERED: ACETAMINOPHEN 325 MG TAB PO PRN (09:59)
[2023-10-03] MEDS ORDERED: ONDANSETRON INJ 2 MG/ML 2 ML VIAL IV PRN (09:59)
[2023-10-03 10:48] LABS: Estimated Average Glucose 134 mg/dl; Hemoglobin A1C 6.3 % (4.5-5.6)
[2023-10-03] MEDS: LACTATED RINGER'S 1,000 ML IV SCH (12:05)
[2023-10-03] MEDS: CEFEPIME 1,000 MG in SYRINGE 0 ML IV SCH (12:24)
[2023-10-03] MEDS: HEPARIN SOD 5,000 UNIT/0.5 ML VIAL SQ SCH (20:21)
[2023-10-04 07:27] LABS: Hematocrit (blood only) 35.6 % (37.0-47.0); Hemoglobin 11.8 g/dl (12.0-16.0); Mean Corpuscular Hemoglobin 30.5 pg (25.0-34.0); Mean Corpuscular Hgb Conc 33.1 g/dL (32.0-36.0); Mean Platelet Volume 10.4 fL (9.4-12.4); Platelet Count 153 K/uL (130-400); RDW Coefficient of Variation 13.8 % (11.5-14.5); RDW Standard Deviation 46.5 fL (36.4-46.3); Red Blood Count 3.87 M/uL (4.20-5.40); White Blood Count 6.41 K/ul (4.8-10.8)
[2023-10-04 07:37] LABS: BUN Creatinine Ratio 29.4 (10-20); Calcium 9.3 mg/dl (8.6-10.3); Creatinine Clr Calc Pharmacy 92.7 ml/min; Est GFR (African American) 98.5 ml/min; Magnesium 1.8 mg/dl (1.7-2.4); Potassium 3.8 mmol/L (3.5-5.1)
[2023-10-04] MEDS: VALSARTAN 80 MG TAB PO SCH (10:11)
--- NOTE | 2023-10-04 12:03 | Surgery Progress Note ---
Date of Service October 04, 2023 Assessment & Plan (1) SBO (small bowel obstruction): Plan: doing well. Passing flatus. Will advance her to clears. Advance diet as tolerated. She may be ready for discharge tomorrow. Will continue to follow. Admission and Anticipated Discharge Date Admission Date: October 03, 2023 Subjective Hospital day #2 for small bowel obstruction. She is feeling much better. Denies pain. Positive flatus. Had a small bowel movement. Physical Exam Physical Exam: NAD, A&O x 3 NCAT Abdomen: Soft, nontender, nondistended Results & Data Vital Signs (Past 12 Hours) Vital Signs Temp Pulse Resp BP Pulse Ox O2 Del Method 10/04/23 07:21 36.6 C 61 16 142/73 H 95 Room Air Laboratory Results 10/04/23 Range/Units 06:35 WBC 6.41 (4.8-10.8) K/ul RBC 3.87 L (4.20-5.40) M/uL Hgb 11.8 L (12.0-16.0) g/dl Hct 35.6 L (37.0-47.0) % MCV 92.0 (80.0-100.0) fL MCH 30.5 (25.0-34.0) pg MCHC 33.1 (32.0-36.0) g/dL RDW Std Deviation 46.5 H (36.4-46.3) fL RDW Coeff of Marciano 13.8 (11.5-14.5) % Plt Count 153 (130-400) K/uL MPV 10.4 (9.4-12.4) fL Sodium 142 (136-145) mmol/L Potassium 3.8 (3.5-5.1) mmol/L Chloride 109 H (98-107) mmol/L Carbon Dioxide 26 (21-32) mmol/L Anion Gap 7 (3-11) BUN 20 (6-23) mg/dl Creatinine 0.68 (0.6-1.2) mg/dl Est Cr Clr Drug Dosing 92.7 ml/min Est GFR ( Amer) 98.5 ml/min Est GFR (Non-Af Amer) 85.0 ml/min BUN/Creatinine Ratio 29.4 H (10-20) Glucose 97 (70-99(Fasting)) mg/dl Calcium 9.3 (8.6-10.3) mg/dl Magnesium 1.8 (1.7-2.4) mg/dl
--- NOTE | 2023-10-04 16:24 | Hospitalist Progress Note ---
Date of Service October 04, 2023 Assessment & Plan (1) SBO (small bowel obstruction): (2) Abdominal pain: (3) Nausea and vomiting: Plan Maurizio Betancourt is a 78y/o F with PMHx of hyperlipidemia, prediabetes, HTN, urinary incontinence, osteoarthritis, history of Guillain-Brush syndrome, history of nonmelanoma skin cancer and other problems listed below who presented to the ED for evaluation of abdominal pain with associated nausea/vomiting and was found to have a small bowel obstruction. Small Bowel Obstruction --CT ABD:Findings are consistent with a small bowel obstruction. A transition point is suggested in the lower midabdomen, and this is likely on the basis of adhesions. There is also mild infiltration around loops of small bowel in the left upper quadrant. Correlate clinically. There is trace free fluid in the pelvis. No intraperitoneal free air is identified. No focally thick-walled bowel loops are identified and there is no pneumatosis intestinalis or portal venous gas. Colonic diverticulosis without CT evidence of acute diverticulitis. -- Continue IV fluids Encouraged to ambulate Liquid diet today Appreciate surgery input Possible Urinary Tract Infection H/O urinary incontinence Urine culture growing gram-negative baseline On cefepime empirically Hypertension (HTN) Continue valsartan Monitor BP Hyperlipidemia: Resume statin as able Prediabetes: HbA1c:6.3 DVT Px: SQ Heparin Code Status: DNR/DNI Admission and Anticipated Discharge Date Admission Date: October 03, 2023 Subjective Patient is seen and examined at bedside Had small bowel movement today Denies any nausea, vomiting Abdominal pain significantly improved Denies any chest pain, dyspnea, dizziness No other complaints Review of Systems Review of Systems: All systems reviewed & are unremarkable except as noted in Subjective Physical Exam Physical Exam: Physical Exam: Vitals signs as noted above General Appearance:Obese, no apparent distress Head: normocephalic, Atraumatic Eyes: normal inspection, EOMI Neck: supple, Trachea midline Respiratory/Chest: Normal breath sounds, CTA, No accessory muscle use Cardiovascular: S1, S2, No murmur Abdomen/GI:Soft, Epigastric tender, Bowel sounds Extremities/Musculoskeletal:normal inspection, 1+ edema Neurologic/Psych:AAOX3, grossly no focal neurological deficits Skin: normal color, warm Results & Data Results & Data Vital Signs (Past 12 Hours) Vital Signs Temp Pulse Resp BP Pulse Ox O2 Del Method 10/04/23 15:05 36.5 C 61 16 161/73 H 97 Room Air 10/04/23 07:21 36.6 C 61 16 142/73 H 95 Room Air Laboratory Results Short CBC 10/04/23 Range/Units 06:35 WBC 6.41 (4.8-10.8) K/ul Hgb 11.8 L (12.0-16.0) g/dl Hct 35.6 L (37.0-47.0) % Plt Count 153 (130-400) K/uL BMP 10/04/23 06:35 Sodium 142 Potassium 3.8 Chloride 109 H Carbon Dioxide 26 BUN 20 Creatinine 0.68 Glucose 97 Calcium 9.3 (2) Abdominal pain Abdominal location: unspecified location Qualified Code(s): R10.9 - Unspecified abdominal pain (3) Nausea and vomiting Vomiting type: unspecified Qualified Code(s): R11.2 - Nausea with vomiting, unspecified
[2023-10-05 06:45] LABS: Hematocrit (blood only) 34.6 % (37.0-47.0); Hemoglobin 11.4 g/dl (12.0-16.0); Mean Corpuscular Hemoglobin 30.5 pg (25.0-34.0); Mean Corpuscular Hgb Conc 32.9 g/dL (32.0-36.0); Mean Corpuscular Volume 92.5 fL (80.0-100.0); Mean Platelet Volume 10.3 fL (9.4-12.4); Platelet Count 132 K/uL (130-400); RDW Coefficient of Variation 13.5 % (11.5-14.5); RDW Standard Deviation 46.6 fL (36.4-46.3); Red Blood Count 3.74 M/uL (4.20-5.40); White Blood Count 5.45 K/ul (4.8-10.8)
[2023-10-05 07:23] LABS: BUN Creatinine Ratio 23.6 (10-20); Calcium 9.1 mg/dl (8.6-10.3); Creatinine Clr Calc Pharmacy 87.6 ml/min; Est GFR (African American) 94.3 ml/min; Est GFR (Non-African American) 81.3 ml/min; Magnesium 1.7 mg/dl (1.7-2.4); Potassium 3.7 mmol/L (3.5-5.1)
[2023-10-05] MEDS ORDERED: hydrALAZINE HCL 20 MG/ML VIAL IV PRN (07:55)
--- NOTE | 2023-10-05 08:22 | Surgery Progress Note ---
Date of Service October 05, 2023 Assessment & Plan (1) SBO (small bowel obstruction): Plan: doing well. Passing flatus. Continue to Advance diet as tolerated. may be discharged to home. Admission and Anticipated Discharge Date Admission Date: October 03, 2023 Subjective doing well. Tolerating full liquids. No nausea or vomiting. No fevers or chills. Passing flatus. Physical Exam Physical Exam: NAD, A&O x 3 NCAT Abdomen: Soft, nontender, nondistended Results & Data Vital Signs (Past 12 Hours) Vital Signs Temp Pulse Resp BP Pulse Ox O2 Del Method 10/05/23 07:20 36.7 C 50 L 16 170/91 H 97 Room Air
[2023-10-05] MEDS: cefTRIAXone SODIUM 2,000 MG/50 ML BAG IV SCH (10:11)
--- NOTE | 2023-10-05 11:44 | Hospitalist Progress Note ---
Date of Service October 05, 2023 Assessment & Plan (1) SBO (small bowel obstruction): (2) Abdominal pain: (3) Nausea and vomiting: Plan Maurizio Betancourt is a 78y/o F with PMHx of hyperlipidemia, prediabetes, HTN, urinary incontinence, osteoarthritis, history of Guillain-Brush syndrome, history of nonmelanoma skin cancer and other problems listed below who presented to the ED for evaluation of abdominal pain with associated nausea/vomiting and was found to have a small bowel obstruction. Small Bowel Obstruction --CT ABD:Findings are consistent with a small bowel obstruction. A transition point is suggested in the lower midabdomen, and this is likely on the basis of adhesions. There is also mild infiltration around loops of small bowel in the left upper quadrant. Correlate clinically. There is trace free fluid in the pelvis. No intraperitoneal free air is identified. No focally thick-walled bowel loops are identified and there is no pneumatosis intestinalis or portal venous gas. Colonic diverticulosis without CT evidence of acute diverticulitis. -- Received IV fluids Encouraged to ambulate Appreciate surgery input + BM, flatus Advance to low fiber diet Discussed with surgery today: Okay for discharge Advised patient to follow-up with surgery on discharge Urinary Tract Infection--POA H/O urinary incontinence Urine culture grew:E.Coli continue IV cefepime >> transition to p.o. antibiotics to complete the course Hypertension (HTN) Continue valsartan Monitor BP Hyperlipidemia: Resume statin Prediabetes: HbA1c:6.3 DVT Px: SQ Heparin Code Status: DNR/DNI Disposition Home Admission and Anticipated Discharge Date Admission Date: October 03, 2023 Subjective Patient is seen and examined at bedside Offers no new complaints Had small BM this morning + Flatus Denies any nausea, vomiting Tolerating diet Discussed with surgery today Denies any significant abdominal pain Denies any chest pain, dyspnea, dizziness Plan to discharge home today Review of Systems Review of Systems: All systems reviewed & are unremarkable except as noted in Subjective Physical Exam Physical Exam: Physical Exam: Vitals signs as noted above General Appearance:Obese, no apparent distress Head: normocephalic, Atraumatic Eyes: normal inspection, EOMI Neck: supple, Trachea midline Respiratory/Chest: Normal breath sounds, CTA, No accessory muscle use Cardiovascular: S1, S2, No murmur Abdomen/GI:Soft, Epigastric tender, Bowel sounds Extremities/Musculoskeletal:normal inspection, 1+ edema Neurologic/Psych:AAOX3, grossly no focal neurological deficits Skin: normal color, warm Results & Data Results & Data Vital Signs (Past 12 Hours) Vital Signs Temp Pulse Resp BP Pulse Ox O2 Del Method 10/05/23 07:20 36.7 C 50 L 16 170/91 H 97 Room Air Laboratory Results Short CBC 10/05/23 Range/Units 06:08 WBC 5.45 (4.8-10.8) K/ul Hgb 11.4 L (12.0-16.0) g/dl Hct 34.6 L (37.0-47.0) % Plt Count 132 (130-400) K/uL BMP 10/05/23 06:08 Sodium 142 Potassium 3.7 Chloride 109 H Carbon Dioxide 27 BUN 17 Creatinine 0.72 Glucose 97 Calcium 9.1 (2) Abdominal pain Abdominal location: unspecified location Qualified Code(s): R10.9 - Unspecified abdominal pain (3) Nausea and vomiting Vomiting type: unspecified Qualified Code(s): R11.2 - Nausea with vomiting, unspecified
--- NOTE | 2023-10-05 11:56 | Discharge Summary ---
Date of Service October 05, 2023 Admission HPI Per Admitting Provider Maurizio Betancourt is a 78y/o F with PMHx of hyperlipidemia, prediabetes, HTN, urinary incontinence, osteoarthritis, history of Guillain-Brush syndrome, history of nonmelanoma skin cancer and other problems listed below who presented to the ED for evaluation of abdominal pain with associated nausea/vomiting. History obtained from patient and associated chart review. Patient states that her abdominal pain started yesterday around 11 AM. Mentions that the pain is occurring in her upper and lower abdominal regions. Reports 9/10 pain in her upper abdomen and 6/10 pain in her lower abdomen at its worst. States the pain in her upper abdomen has "taken her breath away" a couple of times. She received a dose of IV Dilaudid in the ED, which she states worked well to control her pain. She was nauseous on arrival to the ED and had an episode of vomiting; received 1 dose of IV Zofran. Not currently complaining of nausea. 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 Patient has been able to pass gas. She is complaining of bloating in her upper abdominal region. She was taking some Tums and Pepcid at home without any relief. Denies ever taking any bypo-kkg-[id number] pain medications. Further denies any blood in her stool, blood in her vomit or urinary issues. Patient has urinary incontinence at baseline, wears incontinence pads on a daily basis. Not currently taking any medications for her urinary incontinence. She lives at home with her and does not use any assistive devices for ambulation at baseline. 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 Denies any recent falls, lightheadedness or dizziness at this time. Dr. Avendaño in the ED spoke with general surgery [Ellen Kim PA-C]; they will be down to evaluate the patient in the ED. Admission Exam Per Admitting Provider General: WD/WN, vitals as above, NAD, sitting up in bed, pleasant, conversing appropriately. A+Ox3, euthymic affect. HEENT: Normocephalic, atraumatic.Normal inspection, PERRL, conjunctivae normal, anicteric sclerae. External ear and nose normal, oropharynx normal. Respiratory: Normal respiratory effort, lungs clear to auscultation, no wheeze, rales, rhonchi. No accessory muscle use. Cardiovascular: Regular rate, rhythm, no murmur, normal peripheral pulses, no BLE edema. Vessels: No JVD. Abdomen/GI: Good bowel sounds, tender to palpation in upper and lower abdominal regions. Extremities/Musculoskeletal: No cyanosis or clubbing, extremities motor strength intact, moves all extremities. Neurologic: EOMI, accommodation nl, no face palsy, no dysarthria, CN's II-XI not formally tested but appear intact bilaterally. Skin: No rashes, normal color, warm/dry. Principal Diagnosis Small Bowel Obstruction Urinary tract infection Discharge Data Allergies Allergy/AdvReac Type Severity Reaction Status Date / Time Influenza Virus Vaccines Allergy Severe Guillain-Scipio Verified 10/03/23 09:23 Syndrome oxybutynin Allergy Intermediate Fatigued Unverified 10/03/23 10:01 Penicillins AdvReac Unknown Rash Verified 10/03/23 09:23 Consultations 10/03/23 08:01 ED Decision to Admit Stat 10/03/23 09:59 Consult General Surgery Routine Procedures Performed Laboratory Results WBC 5.45 K/ul (4.8-10.8) 10/05/23 06:08 RBC 3.74 M/uL (4.20-5.40) L 10/05/23 06:08 Hgb 11.4 g/dl (12.0-16.0) L 10/05/23 06:08 Hct 34.6 % (37.0-47.0) L 10/05/23 06:08 MCV 92.5 fL (80.0-100.0) 10/05/23 06:08 MCH 30.5 pg (25.0-34.0) 10/05/23 06:08 MCHC 32.9 g/dL (32.0-36.0) 10/05/23 06:08 RDW Std Deviation 46.6 fL (36.4-46.3) H 10/05/23 06:08 RDW Coeff of Marciano 13.5 % (11.5-14.5) 10/05/23 06:08 Plt Count 132 K/uL (130-400) 10/05/23 06:08 MPV 10.3 fL (9.4-12.4) 10/05/23 06:08 Immature Gran % (Auto) 0.4 % 10/03/23 04:18 Neut % (Auto) 80.1 % 10/03/23 04:18 Lymph % (Auto) 13.6 % 10/03/23 04:18 [place] % (Auto) 5.4 % 10/03/23 04:18 Eos % (Auto) 0.2 % 10/03/23 04:18 Baso % (Auto) 0.3 % 10/03/23 04:18 Neut # (Auto) 11.18 K/uL (1.40-6.50) H 10/03/23 04:18 Lymph # (Auto) 1.90 K/uL (1.20-3.40) 10/03/23 04:18 [place] # (Auto) 0.76 K/uL (0.11-0.59) H 10/03/23 04:18 Eos # (Auto) 0.03 K/uL (0.00-0.50) 10/03/23 04:18 Baso # (Auto) 0.04 K/uL (0.00-0.20) 10/03/23 04:18 Immature Gran # (Auto) 0.05 K/uL (0.01-0.20) 10/03/23 04:18 Sodium 142 mmol/L (136-145) 10/05/23 06:08 Potassium 3.7 mmol/L (3.5-5.1) 10/05/23 06:08 Chloride 109 mmol/L (98-107) H 10/05/23 06:08 Carbon Dioxide 27 mmol/L (21-32) 10/05/23 06:08 Anion Gap 6 (3-11) 10/05/23 06:08 BUN 17 mg/dl (6-23) 10/05/23 06:08 Creatinine 0.72 mg/dl (0.6-1.2) 10/05/23 06:08 Est Cr Clr Drug Dosing 87.6 ml/min 10/05/23 06:08 Est GFR ( Amer) 94.3 ml/min 10/05/23 06:08 Est GFR (Non-Af Amer) 81.3 ml/min 10/05/23 06:08 BUN/Creatinine Ratio 23.6 (10-20) H 10/05/23 06:08 Glucose 97 mg/dl (70-99(Fasting)) 10/05/23 06:08 Estimat Average Glucose 134 mg/dl 10/03/23 04:18 Hemoglobin A1c 6.3 % (4.5-5.6) H 10/03/23 04:18 Lactate 1.3 mmol/L (0.4-2.0) 10/03/23 08:37 Calcium 9.1 mg/dl (8.6-10.3) 10/05/23 06:08 Magnesium 1.7 mg/dl (1.7-2.4) 10/05/23 06:08 Total Bilirubin 0.7 mg/dl (0.2-1.0) 10/03/23 04:18 AST 17 U/L (13-39) 10/03/23 04:18 ALT 15 U/L (7-52) 10/03/23 04:18 Alkaline Phosphatase 87 U/L (34-104) 10/03/23 04:18 Total Protein 8.0 gm/dl (6.0-8.3) 10/03/23 04:18 Albumin 4.4 gm/dl (3.4-5.0) 10/03/23 04:18 Globulin 3.6 gm/dl (2.5-4.0) 10/03/23 04:18 Albumin/Globulin Ratio 1.2 (0.9-2) 10/03/23 04:18 Lipase 13 U/L (11-82) 10/03/23 04:18 Urine Color Yellow 10/03/23 08:00 Urine Appearance Clear (Clear) 10/03/23 08:00 Urine pH 5.5 (4.5-7.5) 10/03/23 08:00 Ur Specific [place] > 1.045 (1.000-1.030) H 10/03/23 08:00 Urine Protein Negative (Negative) 10/03/23 08:00 Urine Glucose (UA) Negative (Negative) 10/03/23 08:00 Urine Ketones Negative (Negative) 10/03/23 08:00 Urine Blood Trace (Negative) H 10/03/23 08:00 Urine Nitrite Positive (Negative) A 10/03/23 08:00 Urine Bilirubin Negative (Negative) 10/03/23 08:00 Urine Urobilinogen Negative (Negative) 10/03/23 08:00 Ur Leukocyte Esterase Negative (Negative) 10/03/23 08:00 Urine WBC (Auto) 0-5 /hpf (0-5) 10/03/23 08:00 Urine RBC (Auto) 0-2 /hpf (0-2) 10/03/23 08:00 U Hyaline Cast (Auto) 0-2 /lpf (0-2) 10/03/23 08:00 U Epithel Cells (Auto) 0-2 /hpf (0-2) 10/03/23 08:00 Urine Bacteria (Auto) 4+ (None Seen) H 10/03/23 08:00 Impressions Chest/Abdomen X-ray 10/03/23 04:20 PA CHEST RADIOGRAPH AND UPRIGHT AND SUPINE AP RADIOGRAPHS OF THE ABDOMEN CLINICAL HISTORY: Epigastric pain. COMPARISON STUDY: CT of the abdomen and pelvis November 01, 2020. FINDINGS: Lungs are clear. There is no pneumothorax or pleural effusion. Pulmonary vascularity is normal. Cardiomediastinal silhouette is normal. There is no evidence for free air. A loop of mildly dilated small bowel measures 3.6 cm in caliber. IMPRESSION: 1. No free air. A single loop of mildly dilated small bowel. A partial small bowel obstruction cannot be excluded. 2. No acute cardiopulmonary findings. ACT 112: Negative or not required by law. Electronically signed by: Jose Martin Pearl M.D. 10/03/2023 7:09 AM Abdomen/Pelvis CT 10/03/23 05:07 CT SCAN OF THE ABDOMEN AND PELVIS WITH IV CONTRAST CLINICAL HISTORY: Generalized abdominal pain. COMPARISON STUDY: Abdominal CT dated 11/01/2020. TECHNIQUE: Following the IV administration of 92 cc of Optiray 320, CT scan of the abdomen and pelvis is performed from the lung bases to the proximal femora. Images are reviewed in the axial, sagittal, and coronal planes. IV contrast was administered without complication. A dose lowering technique was utilized adhering to the principles of ALARA. CT DOSE: 1366.67 mGy.cm FINDINGS: Lung bases: The heart is normal in size and without pericardial effusion. There are coronary artery calcifications. The lung bases are clear noting dependent atelectasis. There is a small hiatal hernia. Liver: The contrast-enhanced liver is normal in size, contour, and attenuation. There is no intrahepatic biliary ductal dilatation. The hepatic veins and portal veins are patent. Gallbladder: Unremarkable. Spleen: Normal in size and attenuation. Pancreas: Unremarkable. Adrenal glands: An 11 mm right adrenal adenoma is unchanged. The left adrenal gland is normal in appearance. Kidneys: The contrast enhanced kidneys are normal in size and without hydronephrosis. The kidneys enhance symmetrically. Scattered subcentimeter cortical hypodensities likely represent cysts but are too small for definitive characterization. Abdominal vasculature: The abdominal aorta is normal in course and caliber. Bowel: There are distended and fluid-filled loops of small bowel in the pelvis which measure up to 3.5 cm in diameter. A transition point is suggested in the lower mid abdomen on image #171. This is consistent with a small bowel obstruction. No focally thick-walled loops identified and there is no pneumatosis intestinalis or portal venous gas. There is also infiltration identified around loops of relatively decompressed proximal small bowel in the left upper quadrant. There is mild colonic diverticulosis without CT evidence of acute diverticulitis. The appendix is well-visualized and normal. Peritoneum: There is no intraperitoneal free air or abdominal ascites. Lymphadenopathy: None. Pelvic viscera: The bladder wall appears thickened. A 14 mm diverticulum is seen at the bladder dome. The uterus and adnexa are normal as visualized. There are bilateral fat-containing groin hernias. There is trace free fluid in the pelvis. Skeletal structures: The skeletal structures are osteopenic. There is mild lumbosacral spondylosis. No lytic or blastic lesions are seen. IMPRESSION: 1. Findings are consistent with a small bowel obstruction. A transition point is suggested in the lower midabdomen, and this is likely on the basis of adhesions. 2. There is also mild infiltration around loops of small bowel in the left upper quadrant. Correlate clinically. 3. There is trace free fluid in the pelvis. 4. No intraperitoneal free air is identified. No focally thick-walled bowel loops are identified and there is no pneumatosis intestinalis or portal venous gas. 5. Colonic diverticulosis without CT evidence of acute diverticulitis. 6. Additional findings as above. ACT 112: Negative or not required by law. Electronically signed by: Moy Bryant M.D. 10/03/2023 7:47 AM Ordered Studies 10/03/23 05:07 CT Abd and Pelvis [CT abd pelvis IV con only] Stat Hospital Course (1) SBO (small bowel obstruction): (2) Abdominal pain: (3) Nausea and vomiting: Plan Maurizio Betancourt is a 78y/o F with PMHx of hyperlipidemia, prediabetes, HTN, urinary incontinence, osteoarthritis, history of Guillain-Brush syndrome, history of nonmelanoma skin cancer and other problems listed below who presented to the ED for evaluation of abdominal pain with associated nausea/vomiting and was found to have a small bowel obstruction. Small Bowel Obstruction --CT ABD:Findings are consistent with a small bowel obstruction. A transition point is suggested in the lower midabdomen, and this is likely on the basis of adhesions. There is also mild infiltration around loops of small bowel in the left upper quadrant. Correlate clinically. There is trace free fluid in the pelvis. No intraperitoneal free air is identified. No focally thick-walled bowel loops are identified and there is no pneumatosis intestinalis or portal venous gas. Colonic diverticulosis without CT evidence of acute diverticulitis. -- Received IV fluids Encouraged to ambulate Appreciate surgery input + BM, flatus Advance to low fiber diet Discussed with surgery today: Okay for discharge Advised patient to follow-up with surgery on discharge Urinary Tract Infection--POA H/O urinary incontinence Urine culture grew:E.Coli continue IV cefepime >> transition to p.o. antibiotics to complete the course Hypertension (HTN) Continue valsartan Monitor BP Hyperlipidemia: Resume statin Prediabetes: HbA1c:6.3 DVT Px: SQ Heparin Code Status: DNR/DNI Disposition Home Total Time Total Time Spent Total Time Spent (In Minutes): 52 minutes Discharge Plan Discharge Items Patient Disposition: Home - Self-Care Reason For Visit: small bowel obstrustion Discharge Diagnosis: Small Bowel Obstruction Urinary tract infection Activity: Per Instructions section Exercise/Sports: Gradually increase as tolerated Non-emergency contact: Primary Care Provider and Surgeon Call non-emergency contact if: you have any medication questions, your symptoms worsen, your pain is concerning for you and you have a fever Follow-up/Referrals: Maria Luisa Nunez MD [Primary Care Provider] - Diet: Low Fiber Addtl Attending Provider Instructions: Follow-up with your primary care physician in 1 week Follow-up with your surgeon Dr. King in 3-4 weeks -- Complete the antibiotic course cefdinir (start taking from 10/06/2023) as prescribed. Seek immediate medical attention if your symptoms reoccur or worsen Please take all medications as instructed on discharge list below. Please call if you have any questions or problems. You can reach a [facility] hospitalist on duty at [facility] [address] 24 hours a day by calling [phone] Pending Studies at Discharge: No Stand-Alone Forms: My [facility], Smoking Cessation Medications and DC Order Prescriptions: New docusate sodium 100 mg Capsule 100 mg PO BID PRN (Reason: Constipation) Qty: 30 0RF cefdinir 300 mg capsule 300 mg PO BID Qty: 6 0RF Rx Instructions: start taking from 10/06/23 Continued atorvastatin 10 mg tablet 10 mg PO DAILY valsartan 320 mg tablet 320 mg PO DAILY cholecalciferol (vitamin D3) 25 mcg (1,000 unit) capsule 25 mcg PO DAILY amlodipine 5 mg tablet 5 mg PO DAILY Held hydrochlorothiazide 12.5 mg capsule 12.5 mg PO DAILY Hold Instructions: Hold for 2 days Discharge Orders: Discharge Order (Routine); Ordered 10/05/23 Ordered By: Orville Kline/Other Patient Handouts: Prediabetes, 5 Steps for Eating Healthier Admission Data Admit Date/Time: 10/03/23 08:14 Attending Provider: Orville Plasencia Admit Provider: Orville Plasencia Primary Care Provider: Maria Luisa Nunez Other Providers: Orville Plasencia; Travon King
[2023-10-05] MEDS: DOCUSATE SODIUM 100 MG CAP PO SCH (12:19)
== END 2023-10-05 12:32 | disposition home or self-care (01) | DRG 389 ==
LOC: ED 03:54 → EDINP 08:14 → 3N 14:56